=== PATIENT | male | born 1935 | race Caucasian/White ===

== ENCOUNTER 2017-09-26 11:54 | Inpatient (IN) | payer MEDICARE, BC ==
[2017-09-26] MEDS ORDERED: SODIUM CHLORIDE 0.9% 1,000 ML IV STA (12:28)
--- NOTE | 2017-09-26 12:32 | ED ---
SOB HPI - General Chief Complaint: Shortness of Breath Stated Complaint: SOB Time Seen by Provider: 09/26/17 12:18 Source: patient, RN notes reviewed Mode of arrival: wheelchair Limitations: no limitations - History of Present Illness Initial Comments: This is a 2-year-old male with a history of leukemia anemia who presents with complaints of shortness of breath for the past couple days which is getting worse he did have a hemoglobin level of 8.0 on the ninth he did have recent blood transfusion. The cough with some phlegm some chills no overt fevers or sweats. Chest pain or abdominal pain. He was placed on antibiotics a couple days ago but still does not feel any better. He states his cold symptoms and she started a couple days ago. MD Complaint: shortness of breath, cough - Related Data Home Medications Medication Instructions Recorded Confirmed Finasteride [Proscar] 5 mg PO DAILY 07/14/17 09/26/17 Cephalexin [Keflex] 500 mg PO Q8HR 09/26/17 09/26/17 Bhavna-C 1 packet PO DAILY 09/26/17 09/26/17 amLODIPine [Norvasc] 5 mg PO DAILY 09/26/17 09/26/17 Allergies Allergy/AdvReac Type Severity Reaction Status Date / Time No Known Allergies Allergy Verified 09/26/17 12:39 Review of Systems ROS Statement: Those systems with pertinent positive or pertinent negative responses have been documented in the HPI. ROS Other: All systems not noted in ROS Statement are negative. Past Medical History Past Medical History: Cancer Additional Past Medical History / Comment(s): AML History of Any Multi-Drug Resistant Organisms: None Reported Past Surgical History: No Surgical Hx Reported Past Psychological History: No Psychological Hx Reported Smoking Status: Never smoker Past Alcohol Use History: Occasional Past Drug Use History: None Reported General Exam - General Exam Comments Initial Comments: This a well-developed well-nourished awake alert oriented 1 male Limitations: no limitations General appearance: alert, in no apparent distress Head exam: Present: atraumatic, normocephalic, normal inspection Eye exam: Present: normal appearance, PERRL, EOMI. Absent: scleral icterus, conjunctival injection, periorbital swelling ENT exam: Present: mucous membranes dry Neck exam: Present: normal inspection. Absent: tenderness, meningismus, lymphadenopathy Respiratory exam: Present: rhonchi, other (Right lower lobe rhonchi somewhat diminished breath sounds). Absent: respiratory distress, wheezes, rales, stridor Cardiovascular Exam: Present: normal rhythm, tachycardia, normal heart sounds. Absent: systolic murmur, diastolic murmur, rubs, gallop, clicks GI/Abdominal exam: Present: soft, normal bowel sounds. Absent: distended, tenderness, guarding, rebound, rigid Extremities exam: Present: normal inspection, full ROM, normal capillary refill. Absent: tenderness, pedal edema, joint swelling, calf tenderness Back exam: Present: normal inspection Neurological exam: Present: alert, oriented X3, CN II-XII intact Psychiatric exam: Present: normal affect, normal mood Skin exam: Present: warm, dry, intact, normal color. Absent: rash Course Vital Signs 09/26/17 09/26/17 09/26/17 11:57 12:26 13:44 Temperature 98.1 F 100.8 F H Pulse Rate 124 H 108 H Respiratory 20 16 Rate Blood Pressure 137/60 127/70 O2 Sat by Pulse 83 L 93 L Oximetry - Reevaluation(s) Reevaluation #1: 09/26/17 15:18 Reevaluation patient reveals he has no changes acutely since arrival here. Medical Decision Making - Medical Decision Making I did a long discussion with the patient family regarding the findings. Does have leukemia he did have a fever is unclear whether this is secondary to infectious process in the lung. Patient does have some evidence of some possible mild heart failure. He also is anemic and will require transfusion he will be admitted consultation will be made to Dr. Carmona. There is some elevation of troponin cardiology will also be involved. - Lab Data Result diagrams: 09/26/17 12:33 09/26/17 12:33 Lab Results 09/26/17 09/26/17 09/26/17 Range/Units 12:33 12:33 12:33 WBC 69.7 H* (3.8-10.6) k/uL RBC 2.03 L (4.30-5.90) m/uL Hgb 6.2 L* (13.0-17.5) gm/dL Hct 18.5 L* (39.0-53.0) % MCV 91.4 (80.0-100.0) fL MCH 30.5 (25.0-35.0) pg MCHC 33.4 (31.0-37.0) g/dL RDW 22.9 H (11.5-15.5) % Plt Count 31 L* (150-450) k/uL Neutrophils % (Manual) 15 % Band Neutrophils % 4 % Lymphocytes % (Manual) 8 % Monocytes % (Manual) 3 % Metamyelocytes % 1 % Myelocytes % 2 % Blast Cells % 69 % Neutrophils # (Manual) 13.20 H (1.3-7.7) k/uL Lymphocytes # (Manual) 5.58 H (1.0-4.8) k/uL Monocytes # (Manual) 2.09 H (0-1.0) k/uL Metamyelocytes # (Man) 0.70 H (0) k/uL Myelocytes # (Manual) 1.39 H (0) k/uL Blast Cells # (Man) 48.09 H (0) k/uL Nucleated RBCs 0 (0-0) /100 WBC Manual Slide Review Performed Poikilocytosis (manual Present Anisocytosis Moderate Macrocytosis Slight PT (9.0-12.0) sec INR (<1.2) APTT (22.0-30.0) sec Sodium (137-145) mmol/L Potassium (3.5-5.1) mmol/L Chloride (98-107) mmol/L Carbon Dioxide (22-30) mmol/L Anion Gap mmol/L BUN (9-20) mg/dL Creatinine (0.66-1.25) mg/dL Est GFR (MDRD) Af Amer (>60 ml/min/1.73 sqM) Est GFR (MDRD) Non-Af (>60 ml/min/1.73 sqM) Glucose (74-99) mg/dL Plasma Lactic Acid Cristi (0.7-2.0) mmol/L Calcium (8.4-10.2) mg/dL Magnesium (1.6-2.3) mg/dL Total Bilirubin (0.2-1.3) mg/dL AST (17-59) U/L ALT (21-72) U/L Alkaline Phosphatase (38-126) U/L Total Creatine Kinase 36 L (55-170) U/L CK-MB (CK-2) 0.8 (0.0-2.4) ng/mL CK-MB (CK-2) Rel Index 2.2 Troponin I 0.112 H* (0.000-0.034) ng/mL NT-Pro-B Natriuret Pep pg/mL Total Protein (6.3-8.2) g/dL Albumin (3.5-5.0) g/dL Influenza Type A RNA (Not Detectd) Influenza Type B (PCR) (Not Detectd) Blood Type O Positive Blood Type Recheck No Antibody Screen NEGATIVE Spec Expiration Date 09/29/2017233209/26/17 09/26/17 09/26/17 Range/Units 12:33 12:33 12:33 WBC (3.8-10.6) k/uL RBC (4.30-5.90) m/uL Hgb (13.0-17.5) gm/dL Hct (39.0-53.0) % MCV (80.0-100.0) fL MCH (25.0-35.0) pg MCHC (31.0-37.0) g/dL RDW (11.5-15.5) % Plt Count (150-450) k/uL Neutrophils % (Manual) % Band Neutrophils % % Lymphocytes % (Manual) % Monocytes % (Manual) % Metamyelocytes % % Myelocytes % % Blast Cells % % Neutrophils # (Manual) (1.3-7.7) k/uL Lymphocytes # (Manual) (1.0-4.8) k/uL Monocytes # (Manual) (0-1.0) k/uL Metamyelocytes # (Man) (0) k/uL Myelocytes # (Manual) (0) k/uL Blast Cells # (Man) (0) k/uL Nucleated RBCs (0-0) /100 WBC Manual Slide Review Poikilocytosis (manual Anisocytosis Macrocytosis PT 12.2 H (9.0-12.0) sec INR 1.3 H (<1.2) APTT 22.4 (22.0-30.0) sec Sodium 134 L (137-145) mmol/L Potassium 4.4 (3.5-5.1) mmol/L Chloride 100 (98-107) mmol/L Carbon Dioxide 26 (22-30) mmol/L Anion Gap 8 mmol/L BUN 21 H (9-20) mg/dL Creatinine 0.99 (0.66-1.25) mg/dL Est GFR (MDRD) Af Amer >60 (>60 ml/min/1.73 sqM) Est GFR (MDRD) Non-Af >60 (>60 ml/min/1.73 sqM) Glucose 294 H (74-99) mg/dL Plasma Lactic Acid Cristi (0.7-2.0) mmol/L Calcium 8.8 (8.4-10.2) mg/dL Magnesium 1.8 (1.6-2.3) mg/dL Total Bilirubin 0.9 (0.2-1.3) mg/dL AST 46 (17-59) U/L ALT 115 H (21-72) U/L Alkaline Phosphatase 62 (38-126) U/L Total Creatine Kinase (55-170) U/L CK-MB (CK-2) (0.0-2.4) ng/mL CK-MB (CK-2) Rel Index Troponin I (0.000-0.034) ng/mL NT-Pro-B Natriuret Pep 1970 pg/mL Total Protein 6.2 L (6.3-8.2) g/dL Albumin 3.2 L (3.5-5.0) g/dL Influenza Type A RNA (Not Detectd) Influenza Type B (PCR) (Not Detectd) Blood Type Blood Type Recheck Antibody Screen Spec Expiration Date 09/26/17 09/26/17 Range/Units 12:34 13:47 WBC (3.8-10.6) k/uL RBC (4.30-5.90) m/uL Hgb (13.0-17.5) gm/dL Hct (39.0-53.0) % MCV (80.0-100.0) fL MCH (25.0-35.0) pg MCHC (31.0-37.0) g/dL RDW (11.5-15.5) % Plt Count (150-450) k/uL Neutrophils % (Manual) % Band Neutrophils % % Lymphocytes % (Manual) % Monocytes % (Manual) % Metamyelocytes % % Myelocytes % % Blast Cells % % Neutrophils # (Manual) (1.3-7.7) k/uL Lymphocytes # (Manual) (1.0-4.8) k/uL Monocytes # (Manual) (0-1.0) k/uL Metamyelocytes # (Man) (0) k/uL Myelocytes # (Manual) (0) k/uL Blast Cells # (Man) (0) k/uL Nucleated RBCs (0-0) /100 WBC Manual Slide Review Poikilocytosis (manual Anisocytosis Macrocytosis PT (9.0-12.0) sec INR (<1.2) APTT (22.0-30.0) sec Sodium (137-145) mmol/L Potassium (3.5-5.1) mmol/L Chloride (98-107) mmol/L Carbon Dioxide (22-30) mmol/L Anion Gap mmol/L BUN (9-20) mg/dL Creatinine (0.66-1.25) mg/dL Est GFR (MDRD) Af Amer (>60 ml/min/1.73 sqM) Est GFR (MDRD) Non-Af (>60 ml/min/1.73 sqM) Glucose (74-99) mg/dL Plasma Lactic Acid Cristi 1.9 (0.7-2.0) mmol/L Calcium (8.4-10.2) mg/dL Magnesium (1.6-2.3) mg/dL Total Bilirubin (0.2-1.3) mg/dL AST (17-59) U/L ALT (21-72) U/L Alkaline Phosphatase (38-126) U/L Total Creatine Kinase (55-170) U/L CK-MB (CK-2) (0.0-2.4) ng/mL CK-MB (CK-2) Rel Index Troponin I (0.000-0.034) ng/mL NT-Pro-B Natriuret Pep pg/mL Total Protein (6.3-8.2) g/dL Albumin (3.5-5.0) g/dL Influenza Type A RNA Not Detected (Not Detectd) Influenza Type B (PCR) Not Detected (Not Detectd) Blood Type Blood Type Recheck Antibody Screen Spec Expiration Date - Radiology Data Radiology results: report reviewed (I did review the imaging and reports COPD cardiac male evidence of some vascular congestion and increased interstitial changes.), image reviewed Disposition Clinical Impression: Symptomatic anemia, Congestive heart failure, Febrile illness, acute, Leukemia Disposition: ADMITTED IP TO THIS HOSP Condition: Stable Referrals: None,Stated [REFERRING] - 1-2 days
[2017-09-26 12:50] LABS: Anisocytosis Moderate; MCH 30.5 pg (25.0-35.0); MCHC 33.4 g/dL (31.0-37.0); MCV 91.4 fL (80.0-100.0); Macrocytosis Slight; Mean Platelet Volume 8.6; RBC 2.03 m/uL (4.30-5.90); RDW 22.9 % (11.5-15.5)
[2017-09-26 12:53] LABS: ALT 115 U/L (21-72); AST 46 U/L (17-59); Albumin 3.2 g/dL (3.5-5.0); Alkaline Phosphatase 62 U/L (38-126); Anion Gap 8 mmol/L; Blood Urea Nitrogen 21 mg/dL (9-20); Calcium 8.8 mg/dL (8.4-10.2); Carbon Dioxide 26 mmol/L (22-30); Chloride 100 mmol/L (98-107); Glucose 294 mg/dL (74-99); Magnesium 1.8 mg/dL (1.6-2.3); Potassium 4.4 mmol/L (3.5-5.1); Sodium 134 mmol/L (137-145); Total Bilirubin 0.9 mg/dL (0.2-1.3); Total Protein 6.2 g/dL (6.3-8.2)
[2017-09-26 12:55] LABS: INR 1.3 (<1.2); Partial Thromboplastin Time 22.4 sec (22.0-30.0); Prothrombin Time 12.2 sec (9.0-12.0)
--- NOTE | 2017-09-26 13:09 | XR ---
EXAMINATION TYPE: XR chest 2V DATE OF EXAM: 09/26/2017 HISTORY: difficulty breathing. REFERENCE: NONE. FINDINGS: The lungs are overinflated. There is diffuse interstitial change. This may BE acute or auditor/quality jodi. This is chronic and likely represents pulmonary fibrosis. There is a acute, this may represent a typical pneumonia. Pulmonary edema superimposed upon abnormal lung architecture could also have this appearance. The heart is enlarged. I suspect small effusions. IMPRESSION: 1. COPD. 2. CARDIOMEGALY. 3. VASCULAR CONGESTION. 4. DIFFUSE INTERSTITIAL CHANGE DESCRIBED, MAY REPRESENT FIBROSIS OR ATYPICAL PULMONARY EDEMA.
[2017-09-26 13:16] LABS: HCT 18.5 % (39.0-53.0); HGB 6.2 gm/dL (13.0-17.5); Platelet Count 31 k/uL (150-450); WBC 69.7 k/uL (3.8-10.6)
[2017-09-26 13:19] LABS: Creatine Kinase MB 0.8 ng/mL (0.0-2.4)
[2017-09-26 13:20] LABS: Troponin I 0.112 ng/mL (0.000-0.034)
[2017-09-26 13:30] LABS: Band Neutrophils % 4 %; Blast Cells # (M) 48.09 k/uL (0); Lymphocytes # (M) 5.58 k/uL (1.0-4.8); Metamyelocytes % 1 %; Monocytes # (M) 2.09 k/uL (0-1.0); Myelocytes # (M) 1.39 k/uL (0); Myelocytes % 2 %; Neutrophils % (M) 15 %; Nucleated Red Blood Cells 0 /100 WBC (0-0); Poikilocytosis (M) Present; Total Cells Counted 200
[2017-09-26] MEDS ORDERED: NALOXONE 0.4 MG/ML 1 ML VIAL IV PRN (15:22)
[2017-09-26] MEDS ORDERED: ONDANSETRON 4 MG/2 ML VIAL IVP PRN (15:22)
[2017-09-26] MEDS ORDERED: ACETAMINOPHEN TAB 325 MG TAB PO PRN (15:22)
[2017-09-26] MEDS ORDERED: CEFEPIME 1 GM in SODIUM CHLORIDE 0.9% 50 ML IVPB STA (15:25)
[2017-09-26] MEDS ORDERED: SODIUM CHLORIDE 0.9% 1,000 ML IV SCH (15:30)
[2017-09-26] MEDS ORDERED: CEFEPIME 2 GM in SODIUM CHLORIDE 0.9% 50 ML IVPB STA (15:36)
[2017-09-26] MEDS ORDERED: FUROSEMIDE 10 MG/ML 4 ML VIAL IV STA (15:37)
[2017-09-26 16:18] VITALS: BMI 27.3
[2017-09-27] MEDS: CEFEPIME 2 GM in SODIUM CHLORIDE 0.9% 50 ML IVPB SCH ×4 (00:34→23:13)
[2017-09-27] MEDS ORDERED: FUROSEMIDE 10 MG/ML 4 ML VIAL IV STA ×2 (00:50→16:27)
[2017-09-27 06:46] LABS: Anisocytosis Moderate; HCT 24.6 % (39.0-53.0); HGB 8.7 gm/dL (13.0-17.5); MCH 33.2 pg (25.0-35.0); MCHC 35.2 g/dL (31.0-37.0); MCV 94.1 fL (80.0-100.0); Macrocytosis Slight; Mean Platelet Volume 8.8; RBC 2.61 m/uL (4.30-5.90); RDW 21.8 % (11.5-15.5)
[2017-09-27 07:12] LABS: Platelet Count 30 k/uL (150-450); WBC 103.1 k/uL (3.8-10.6)
[2017-09-27] MEDS: FINASTERIDE 5 MG TAB PO SCH (07:53)
[2017-09-27] MEDS: PANTOPRAZOLE 40 MG/10 ML VIAL IV SCH (07:53)
[2017-09-27] MEDS: IPRATROPIUM-ALBUTEROL 3 ML NEB INHALATION SCH ×4 (08:11→19:07)
[2017-09-27 08:55] LABS: Band Neutrophils % 2 %; Lymphocytes # (M) 3.09 k/uL (1.0-4.8); Monocytes # (M) 2.06 k/uL (0-1.0); Myelocytes # (M) 1.03 k/uL (0); Myelocytes % 1 %; Neutrophils % (M) 8 %; Nucleated Red Blood Cells 0 /100 WBC (0-0); Total Cells Counted 100
[2017-09-27 08:56] LABS: Poikilocytosis (M) Present
[2017-09-27] MEDS ORDERED: ESTER C PO SCH (09:00)
[2017-09-27] MEDS ORDERED: amLODIPine 5 MG TAB PO SCH (09:00)
[2017-09-27] MEDS: HYDROXYUREA 500 MG CAP PO SCH ×2 (09:10→20:45)
[2017-09-27] MEDS: ALLOPURINOL 300 MG TAB PO SCH (09:10)
[2017-09-27] MEDS ORDERED: VANCOMYCIN IV PER PHARMACY 1 EACH MISC MISCELLANE PRN (09:25)
[2017-09-27] MEDS ORDERED: VANCOMYCIN 1,750 MG in SODIUM CHLORIDE 0.9% 250 ML IVPB ONE (10:00)
[2017-09-27] MEDS ORDERED: FUROSEMIDE 10 MG/ML 4 ML VIAL IV SCH (10:00)
--- NOTE | 2017-09-27 10:15 | CT ---
EXAMINATION TYPE: CT chest wo con DATE OF EXAM: 09/27/2017 COMPARISON: NONE HISTORY: ILD, pneumonia CT DLP: 468.50 mGycm. Automated Exposure Control for Dose Reduction was Utilized. TECHNIQUE: CT scan of the thorax is performed without IV contrast. FINDINGS: There is diffuse, bilateral patchy groundglass opacities occupying most of the lung parench yma. No definite parenchymal nodules are seen. There is no significant axillary adenopathy. There is some mediastinal adenopathy. The largest lymph node measures 1.2 cm. There are bilateral pleural effusions, greater on the right than the left. There is a 6 mm pericardia l effusion. The heart is enlarged. There is coronary artery calcification. Visualized portions of the upper abdomen are unremarkable. There is hypertrophic spondylosis within the spine.. IMPRESSION: 1. DIFFUSE PATCHY GROUNDGLASS OPACITY THROUGHOUT BOTH LUNGS. THIS MAY REPRESENT ALVEOLITIS OR PNEUMON ITIS. OTHER ATYPICAL PNEUMONIA SUCH USUAL INTERSTITIAL PNEUMONIA OR BRONCHIOLITIS OBLITERANS ORGAN IZING PNEUMONIA WOULD ALSO BE A POSSIBILITY. 2. NONSPECIFIC MEDIASTINAL ADENOPATHY. 3. BILATERAL EFFUSIONS, GREATER ON THE RIGHT THAN THE LEFT. 4. DEGENERATIVE CHANGE WITHIN THE SPINE.
[2017-09-27] MEDS: SODIUM CHLORIDE 0.9% 1,000 ML IV SCH ×2 (10:23→22:32)
[2017-09-27 10:44] LABS: Glucose,Whole Blood 207 mg/dL (75-99)
[2017-09-27 11:05] LABS: Anion Gap 6 mmol/L; Blood Urea Nitrogen 22 mg/dL (9-20); Calcium 8.8 mg/dL (8.4-10.2); Carbon Dioxide 32 mmol/L (22-30); Chloride 102 mmol/L (98-107); Glucose 133 mg/dL (74-99); Magnesium 1.9 mg/dL (1.6-2.3); Phosphorus 3.4 mg/dL (2.5-4.5); Potassium 4.2 mmol/L (3.5-5.1); Sodium 140 mmol/L (137-145)
--- NOTE | 2017-09-27 11:52 | P.CNPUL ---
History of Present Illness Consult date: 09/27/17 Requesting physician: Wilbert Mckinley Reason for consult: pneumonia Chief complaint: shortness of breath and coughing up blood History of present illness: this is an 82-year-old white male with history of chronic lymphocytic leukemia, hypertension, normally sees Dr. Carmona for his leukemia. Over the last few days , the patient had symptoms of upper respiratory tract infection,and he was seen by Dr. Girard who is covering for Dr. Rodríguez, and he was given Keflex for what seemed to be symptoms of URI. His symptoms at the time included a runny nose, cough with blood-tinged sputum, weakness, fatigue, and shortness of breath. Over the last few days, the patient has been getting gradually worse. Patient was advised to come to the ER. And last night he was evaluated in the ER.noted to have a significant jump in his WBC count almost double up to 10 3000s, with significant blastic transformation of 84% on the differential. Platelets were noted to be low at 30,000, and hemoglobin was 6.2.borderline troponin elevation was noted, and borderline BNP level was noted to be elevated. His influenza screen for influenza A and influenza B were negative.chest x-ray showed diffuse interstitial infiltrates, patient was admitted, and this consult was initiated. Shortly after a evaluated the patient , I felt that the patient has shortness of breath which is multifactorial secondary to worsening interstitial infiltrates, and the differential diagnoses includes infection it also includes and most likely the possibility of ARDS secondary to leukemic infiltrates involving both lungs. This is mostly based on the fact that his white count has significantly increased and a matter of few days, with worsening blast transformation noted on the differential. In the meantime I have recommended giving the patient's broad-spectrum antibiotics in the form of vancomycin and cefepime, and also recommended Solu-Medrol, patient was already given diuretics by the ER physician but I strongly doubt congestive heart failure. CT of the chest showeddiffuse patchy groundglass opacities in both lungs, representing a picture of alveolitis or pneumonitis or interstitial pneumonia or bronchiolitis obliterans with organizing pneumonia. There was also evidence of nonspecific mediastinal adenopathy and bilateral small effusions. As soon as I evaluated the patient, I have made recommendations to transfer the patient to the ICU, discussed CODE STATUS with the family and with the patient, clearly, the patient wishes to be DO NOT RESUSCITATE. I have also discussed the patient's condition with the oncologist on the case Dr. Machado. Review of Systems 12 point review of systems were obtained, patient denies any headaches, no blurred vision, no dizziness, complaining of runny nose, shortness of breath, cough with coughing up some blood, no chest pain, no palpitations, no nausea, no vomiting, no abdominal pain, no melena, no hematemesis, no dysuria and no frequency no urgency no hematuria. Patient denies significant aches and pains, he just feels generally weak. Otherwise remaining systems are negative. Past Medical History Past Medical History: Cancer Additional Past Medical History / Comment(s): AML History of Any Multi-Drug Resistant Organisms: None Reported Past Surgical History: Hernia Repair Additional Past Surgical History / Comment(s): hernia repair 1963 Past Psychological History: No Psychological Hx Reported Smoking Status: Never smoker Past Alcohol Use History: Occasional Past Drug Use History: None Reported Medications and Allergies Home Medications Medication Instructions Recorded Confirmed Type Finasteride [Proscar] 5 mg PO DAILY 07/14/17 09/26/17 History Cephalexin [Keflex] 500 mg PO Q8HR 09/26/17 09/26/17 History Bhavna-C 1 packet PO DAILY 09/26/17 09/26/17 History amLODIPine [Norvasc] 5 mg PO DAILY 09/26/17 09/26/17 History Allergies Allergy/AdvReac Type Severity Reaction Status Date / Time No Known Allergies Allergy Verified 09/26/17 12:39 Physical Exam Vitals: Vital Signs Temp Pulse Pulse Resp BP BP Pulse Ox 09/27/17 11:35 114 H 09/27/17 11:14 103 H 09/27/17 11:00 98.3 F 113 H 36 H 122/73 92 L 09/27/17 08:18 88 09/27/17 08:11 88 09/27/17 08:08 92 L 09/27/17 07:53 97 F L 96 22 131/60 90 L 09/27/17 04:30 94 L 09/27/17 04:00 98.6 F 99 22 119/65 88 L 09/27/17 02:35 93 L 09/27/17 01:20 92 L 09/27/17 01:00 83 L 09/27/17 00:35 97.6 F 108 H 18 122/48 90 L 09/27/17 00:15 94 L 09/27/17 00:00 98 18 88 L 09/26/17 22:00 97 F L 98 18 114/70 91 L 09/26/17 21:30 97.9 F 108 H 18 129/71 93 L 09/26/17 21:20 98 F 112 H 18 126/73 92 L 09/26/17 20:00 98 F 112 H 18 135/69 92 L 09/26/17 19:59 98 F 112 H 18 135/69 92 L 09/26/17 18:04 97.3 F L 96 18 133/66 93 L 09/26/17 17:34 97.2 F L 91 18 120/59 91 L 09/26/17 17:24 98.8 F 116 H 18 139/75 95 09/26/17 16:06 96.6 F L 109 H 18 127/64 90 L 09/26/17 15:39 96 16 164/79 93 L 09/26/17 13:44 108 H 16 127/70 93 L 09/26/17 12:26 100.8 F H 09/26/17 11:57 98.1 F 124 H 20 137/60 83 L Intake and Output 09/26/17 09/27/17 09/27/17 22:59 06:59 14:59 Intake Total 550 310 Output Total 175 525 Balance 375 -215 Intake: Oral 240 0 Blood Product 310 310 Rc As-1 Unit 0 310 [id number] Rc As-1 Unit 310 [id number] Output: Urine 175 525 Other: Voiding Method Toilet Toilet Toilet Urinal Urinal Urinal Weight 81.647 kg 85.9 kg Physical Exam: Revealed an 82-year-old white male, very pleasant, on high flow nasal cannula, in mild respiratory distress noted. Slightly anxious. HEENT:[Neck is supple.] [No neck masses.] [No thyromegaly.] [No JVD.]PERRLA, EOMI, dry mucous membranes were noted. Chest: [fine crackles noted at the bases bilaterally, no rhonchi, no wheezes. No chest wall tenderness..] Cardiac Exam: [Normal S1 and S2, no S3 gallop, no murmur.] Abdomen: [Soft, nontender, no megaly, no rebound, no guarding, normal bowel sounds.] Extremities: [No clubbing, no edema, no cyanosis.] Neurological Exam: [No focal neurologic deficit.] lymphatics: No lymphadenopathy. Psychiatric: Normal mood affect and mental status examination. Results - Laboratory Findings CBC and BMP: 09/27/17 06:07 09/27/17 06:07 PT/INR, D-dimer PT 12.2 sec (9.0-12.0) H 09/26/17 12:33 INR 1.3 (<1.2) H 09/26/17 12:33 D-Dimer 3.21 mg/L FEU (<0.60) H 09/27/17 06:07 Abnormal lab findings: Abnormal Labs 09/26/17 09/26/17 09/26/17 12:33 12:33 12:33 WBC 69.7 H* RBC 2.03 L Hgb 6.2 L* Hct 18.5 L* RDW 22.9 H Plt Count 31 L* Neutrophils # (Manual) 13.20 H Lymphocytes # (Manual) 5.58 H Monocytes # (Manual) 2.09 H Metamyelocytes # (Man) 0.70 H Myelocytes # (Manual) 1.39 H Blast Cells # (Man) 48.09 H PT INR D-Dimer Sodium Carbon Dioxide BUN Glucose POC Glucose (mg/dL) ALT Total Creatine Kinase 36 L Troponin I 0.112 H* Total Protein Albumin Crossmatch See Detail 09/26/17 09/26/17 09/27/17 12:33 12:33 01:13 WBC RBC Hgb Hct RDW Plt Count Neutrophils # (Manual) Lymphocytes # (Manual) Monocytes # (Manual) Metamyelocytes # (Man) Myelocytes # (Manual) Blast Cells # (Man) PT 12.2 H INR 1.3 H D-Dimer Sodium 134 L Carbon Dioxide BUN 21 H Glucose 294 H POC Glucose (mg/dL) ALT 115 H Total Creatine Kinase Troponin I 0.179 H* Total Protein 6.2 L Albumin 3.2 L Crossmatch 09/27/17 09/27/17 09/27/17 06:07 06:07 06:07 WBC 103.1 H* RBC 2.61 L Hgb 8.7 L D Hct 24.6 L RDW 21.8 H Plt Count 30 L* Neutrophils # (Manual) 10.30 H Lymphocytes # (Manual) Monocytes # (Manual) 2.06 H Metamyelocytes # (Man) Myelocytes # (Manual) 1.03 H Blast Cells # (Man) 86.60 H PT INR D-Dimer 3.21 H Sodium Carbon Dioxide BUN Glucose POC Glucose (mg/dL) ALT Total Creatine Kinase Troponin I 0.143 H* Total Protein Albumin Crossmatch 09/27/17 09/27/17 06:07 10:40 WBC RBC Hgb Hct RDW Plt Count Neutrophils # (Manual) Lymphocytes # (Manual) Monocytes # (Manual) Metamyelocytes # (Man) Myelocytes # (Manual) Blast Cells # (Man) PT INR D-Dimer Sodium Carbon Dioxide 32 H BUN 22 H Glucose 133 H POC Glucose (mg/dL) 207 H ALT Total Creatine Kinase Troponin I Total Protein Albumin Crossmatch - Diagnostic Findings Chest x-ray: image reviewed CT scan - chest: image reviewed (diffuse interstitial infiltrates noted bilaterally. No old x-rays or scans of the chest for comparison available.) Assessment and Plan Assessment: impression: 1 acute hypoxic respiratory failure secondary to diffuse interstitial infiltrates, the differential diagnoses includes leukemic infiltrates, ARDS from leukemic pulmonary infiltrates, bilateral pneumonia in an immunocompromised patient, could be viral or bacterial, however I believe the presentation is mostly a presentation of ARDS with leukemic infiltrates secondary to worsening acute on chronic lymphocytic leukemia. 2 acute thrombocytopenia and anemia secondary to underlying acute on chronic lymphocytic leukemia. 3 acute hemoptysis secondary to bilateral interstitial infiltrates, again the most likely explanation is related to leukemic infiltrates bilaterally. 4history of hypertension,and history of chronic lymphocytic leukemia. Recommendation: Patient was transferred to the ICU, placed on antibiotics in the form of cefepime and vancomycin, placed on high flow O2, will receive Solu- Medrol, will receive GI prophylaxis, no need for diuretics at this point, patient was already given diuretics without major improvement. Discussed his condition with the oncologist on the case, discussed his condition with the family and with the patient at bedside, all aware of the poor prognostic picture , and CODE STATUS is DO NOT RESUSCITATE. Critical care time is 1 hour. Time with Patient: Greater than 30
[2017-09-27] MEDS: METOPROLOL TARTRATE 25 MG TAB PO SCH ×2 (12:42→20:45)
--- NOTE | 2017-09-27 12:58 | CONS ---
CONSULTATION Mr. Baez is an 82-year-old male who was diagnosed with AML in June off last year, who presented with symptoms of progressive dyspnea and fatigue and was noted to be severely anemic. He has transfusion in the past and has been followed by Dr. Carmona and scheduled to undergo chemotherapy. He has no prior cardiac history. History activity level is usually good. He has no exertional chest pain. He had no symptoms until June when he started to have his symptoms. He has been feeling more fatigued and short of breath and was diagnosed with pneumonia on presentation and was febrile. His troponin was minimally elevated. The patient has no history of PND, orthopnea. No peripheral edema. No history of arrhythmia and no dizziness. No palpitation. No syncope in the past. His coronary risk factors positive for hypertension, is nondiabetic, nonsmoker, no document hyperlipidemia. MEDICATIONS: Include amlodipine 5 mg daily. REVIEW OF SYSTEMS: RESPIRATORY SYSTEM: He has no history of documented asthma, emphysema. He has recent cough. GI SYSTEM: No recent GI bleeding. He had mild nausea. SYSTEM: No dysuria, hematuria. NERVOUS SYSTEM: No stroke or seizure. PHYSICAL EXAMINATION: He is an 82-year-old male, alert, oriented, mildly dyspneic. Blood pressure 122/70 with a heart rate in the low 100s. HEAD: Normocephalic. EYES: Sclerae anicteric. NECK: No bruit. LUNGS: With few crackles bilaterally with few rales. No wheezes. HEART: Regular rate and rhythm, S1, S2. No S3 with systolic murmur at the base. No diastolic murmur. No rub. ABDOMEN: Soft, nontender. Positive bowel sounds. No organomegaly. EXTREMITIES: No edema. Intact pulses. LAB DATA: BUN and creatinine 22 and 1.04, potassium 4.2. Hemoglobin of 6.2 yesterday, 8.7 today after transfusion. His white blood cell went from 69,000 to 103,000. His platelet count is 30. His troponin 0.112, 0.179, 0.143. IMPRESSION: 1. AML with significant increase in the white blood cell over the next 24 hours. 2. Probable pneumonia. 3. Minimal elevation of troponin, reflecting a type 2 event. 4. Anemia, severe, related to his malignancy. 5. Prior history of hypertension. RECOMMENDATION: From the cardiac standpoint, I will stop his amlodipine and start him on low-dose beta amy. Obtain echocardiogram with Doppler. I do not believe that his troponin elevation reflects a primary event and his EKG shows no acute changes. Unfortunately the prognosis is guarded. LUDIVINA / IJN: [id number] /
--- NOTE | 2017-09-27 13:38 | P.HPIM ---
History of Present Illness H&P Date: 09/27/17 Moe Baez is a 82-year-old male with a history of leukemia and anemia who presents with complaints of shortness of breath for the past couple days which is getting worse. He received blood transfusion as outpatient also received a course of oral antibiotic his condition continued to worsen and he decided to come to emergency room where he was admitted to medical floor. Patient was seen by hematology and 2 units of red blood cells were ordered, he was having worsening shortness of breath he received IV Lasix and was transferred to intensive care unit. Pulmonary consultation and cardiology consultation were requested. He shouldn't has a known history of leukemia and is followed by oncology as outpatient. Past Medical History Past Medical History: Cancer Additional Past Medical History / Comment(s): AML History of Any Multi-Drug Resistant Organisms: None Reported Past Surgical History: Hernia Repair Additional Past Surgical History / Comment(s): hernia repair 1963 Past Psychological History: No Psychological Hx Reported Smoking Status: Never smoker Past Alcohol Use History: Occasional Past Drug Use History: None Reported Medications and Allergies Home Medications Medication Instructions Recorded Confirmed Type Finasteride [Proscar] 5 mg PO DAILY 07/14/17 09/26/17 History Cephalexin [Keflex] 500 mg PO Q8HR 09/26/17 09/26/17 History Bhavna-C 1 packet PO DAILY 09/26/17 09/26/17 History amLODIPine [Norvasc] 5 mg PO DAILY 09/26/17 09/26/17 History Allergies Allergy/AdvReac Type Severity Reaction Status Date / Time No Known Allergies Allergy Verified 09/26/17 12:39 Physical Exam Vitals: Vital Signs Temp Pulse Pulse Resp BP BP Pulse Ox 09/27/17 12:00 103 H 38 H 131/75 91 L 09/27/17 11:35 114 H 09/27/17 11:14 103 H 09/27/17 11:00 98.3 F 113 H 36 H 122/73 92 L 09/27/17 08:18 88 09/27/17 08:11 88 09/27/17 08:08 92 L 09/27/17 07:53 97 F L 96 22 131/60 90 L 09/27/17 04:30 94 L 09/27/17 04:00 98.6 F 99 22 119/65 88 L 09/27/17 02:35 93 L 09/27/17 01:20 92 L 09/27/17 01:00 83 L 09/27/17 00:35 97.6 F 108 H 18 122/48 90 L 09/27/17 00:15 94 L 09/27/17 00:00 98 18 88 L 09/26/17 22:00 97 F L 98 18 114/70 91 L 09/26/17 21:30 97.9 F 108 H 18 129/71 93 L 09/26/17 21:20 98 F 112 H 18 126/73 92 L 09/26/17 20:00 98 F 112 H 18 135/69 92 L 09/26/17 19:59 98 F 112 H 18 135/69 92 L 09/26/17 18:04 97.3 F L 96 18 133/66 93 L 09/26/17 17:34 97.2 F L 91 18 120/59 91 L 09/26/17 17:24 98.8 F 116 H 18 139/75 95 09/26/17 16:06 96.6 F L 109 H 18 127/64 90 L 09/26/17 15:39 96 16 164/79 93 L 09/26/17 13:44 108 H 16 127/70 93 L Intake and Output 09/26/17 09/27/17 09/27/17 22:59 06:59 14:59 Intake Total 550 310 75 Output Total 175 525 Balance 375 -215 75 Intake: IV 75 Sodium Chloride 0.9% 1, 75 000 ml @ 75 mls/hr IV . [id number] [facility] Rx#:[id number] Oral 240 0 Blood Product 310 310 Rc As-1 Unit 0 310 [id number] Rc As-1 Unit 310 [id number] Output: Urine 175 525 Other: Voiding Method Toilet Toilet Toilet Urinal Urinal Urinal Weight 81.647 kg 85.9 kg 85.8 kg Patient Weight 09/28/17 06:59 Weight 85.8 kg General patient is alert and oriented 3 in no apparent distress HEENT head normocephalic and atraumatic Is supple no JVD no goiter no lymphadenopathy Chest exam reveals diffuse crackles in both lung serrano no wheezing Cardiac exam reveals regular heart sounds no gallops no murmurs Abdomen is soft nontender no organomegaly was normal bowel sounds Extremity exam reveals no edema no cyanosis or clubbing Results CBC & Chem 7: 09/27/17 06:07 09/27/17 06:07 Labs: Abnormal Lab Results - Last 24 Hours (Table) 09/26/17 09/26/17 09/27/17 Range/Units 12:33 12:33 01:13 WBC (3.8-10.6) k/uL RBC (4.30-5.90) m/uL Hgb (13.0-17.5) gm/dL Hct (39.0-53.0) % RDW (11.5-15.5) % Plt Count (150-450) k/uL Neutrophils # (Manual) 13.20 H (1.3-7.7) k/uL Lymphocytes # (Manual) 5.58 H (1.0-4.8) k/uL Monocytes # (Manual) 2.09 H (0-1.0) k/uL Metamyelocytes # (Man) 0.70 H (0) k/uL Myelocytes # (Manual) 1.39 H (0) k/uL Blast Cells # (Man) 48.09 H (0) k/uL D-Dimer (<0.60) mg/L FEU Carbon Dioxide (22-30) mmol/L BUN (9-20) mg/dL Glucose (74-99) mg/dL POC Glucose (mg/dL) (75-99) mg/dL Troponin I 0.179 H* (0.000-0.034) ng/mL Crossmatch See Detail 09/27/17 09/27/17 09/27/17 Range/Units 06:07 06:07 06:07 WBC 103.1 H* (3.8-10.6) k/uL RBC 2.61 L (4.30-5.90) m/uL Hgb 8.7 L D (13.0-17.5) gm/dL Hct 24.6 L (39.0-53.0) % RDW 21.8 H (11.5-15.5) % Plt Count 30 L* (150-450) k/uL Neutrophils # (Manual) 10.30 H (1.3-7.7) k/uL Lymphocytes # (Manual) (1.0-4.8) k/uL Monocytes # (Manual) 2.06 H (0-1.0) k/uL Metamyelocytes # (Man) (0) k/uL Myelocytes # (Manual) 1.03 H (0) k/uL Blast Cells # (Man) 86.60 H (0) k/uL D-Dimer 3.21 H (<0.60) mg/L FEU Carbon Dioxide (22-30) mmol/L BUN (9-20) mg/dL Glucose (74-99) mg/dL POC Glucose (mg/dL) (75-99) mg/dL Troponin I 0.143 H* (0.000-0.034) ng/mL Crossmatch 09/27/17 09/27/17 Range/Units 06:07 10:40 WBC (3.8-10.6) k/uL RBC (4.30-5.90) m/uL Hgb (13.0-17.5) gm/dL Hct (39.0-53.0) % RDW (11.5-15.5) % Plt Count (150-450) k/uL Neutrophils # (Manual) (1.3-7.7) k/uL Lymphocytes # (Manual) (1.0-4.8) k/uL Monocytes # (Manual) (0-1.0) k/uL Metamyelocytes # (Man) (0) k/uL Myelocytes # (Manual) (0) k/uL Blast Cells # (Man) (0) k/uL D-Dimer (<0.60) mg/L FEU Carbon Dioxide 32 H (22-30) mmol/L BUN 22 H (9-20) mg/dL Glucose 133 H (74-99) mg/dL POC Glucose (mg/dL) 207 H (75-99) mg/dL Troponin I (0.000-0.034) ng/mL Crossmatch Thrombosis Risk Factor Assmnt - Choose All That Apply Each Factor Represents 1 point: Obesity (BMI >25) Each Risk Factor Represents 3 Points: Age 75 years or older Thrombosis Risk Factor Assessment Total Risk Factor Score: 4 Thrombosis Risk Factor Assessment Level: Moderate Risk Assessment and Plan Plan: 1. acute hypoxic respiratory failure secondary with evidence of bilateral infiltrates 2. Immunocompromised status 3. Acute on chronic lymphocytic leukemia 4. acute thrombocytopenia and anemia secondary to underlying acute on chronic lymphocytic leukemia. 5. acute hemoptysis secondary to bilateral interstitial infiltrates, again the most likely explanation is related to leukemic infiltrates bilaterally. 6. Underlying history of hypertension At this time patient is admitted to ICU he is receiving IV antibiotics, he received IV Lasix with minimal improvement through the night Received 2 units of red blood cell transfusion on presentation code status was changed to no code last night Continue to treat in the ICU prognosis is guarded
[2017-09-27] MEDS: methylPREDNISolone SOD SUCCI 125 MG/2 ML VIAL IV SCH ×3 (13:43→23:08)
[2017-09-27] MEDS: LORazepam 2 MG/ML INJ IV PRN ×2 (17:04→20:48)
[2017-09-27 17:31] LABS: Glucose,Whole Blood 224 mg/dL (75-99)
[2017-09-27] MEDS: INSULIN ASPART 100 UNIT/ML 1 ML 10 ML VIAL SQ SCH (17:38)
[2017-09-27 18:31] LABS: Hemoglobin A1C 7.1 % (4.0-6.0)
[2017-09-27 20:57] LABS: Glucose,Whole Blood 271 mg/dL (75-99)
[2017-09-27] MEDS: INSULIN REGULAR 100 UNIT in SODIUM CHLORIDE 0.9% 100 ML IV SCH (22:23)
[2017-09-27 22:32] LABS: Glucose,Whole Blood 221 mg/dL (75-99)
[2017-09-27 22:58] LABS: Glucose,Whole Blood 202 mg/dL (75-99)
[2017-09-27 23:53] LABS: Glucose,Whole Blood 152 mg/dL (75-99)
[2017-09-28 01:04] LABS: Glucose,Whole Blood 130 mg/dL (75-99)
[2017-09-28 02:05] LABS: Glucose,Whole Blood 149 mg/dL (75-99)
[2017-09-28 03:02] LABS: Glucose,Whole Blood 173 mg/dL (75-99)
[2017-09-28 03:53] LABS: Glucose,Whole Blood 164 mg/dL (75-99)
[2017-09-28 04:24] LABS: Anisocytosis Moderate; HCT 22.8 % (39.0-53.0); HGB 7.4 gm/dL (13.0-17.5); MCHC 32.3 g/dL (31.0-37.0); MCV 92.9 fL (80.0-100.0); Macrocytosis Slight; Mean Platelet Volume 9.7; RBC 2.46 m/uL (4.30-5.90); RDW 20.2 % (11.5-15.5)
[2017-09-28 04:37] LABS: Anion Gap 7 mmol/L; Blood Urea Nitrogen 31 mg/dL (9-20); Calcium 8.2 mg/dL (8.4-10.2); Carbon Dioxide 31 mmol/L (22-30); Chloride 101 mmol/L (98-107); Glucose 159 mg/dL (74-99); Magnesium 2.2 mg/dL (1.6-2.3); Phosphorus 3.8 mg/dL (2.5-4.5); Potassium 4.5 mmol/L (3.5-5.1); Sodium 139 mmol/L (137-145)
[2017-09-28 05:05] LABS: Glucose,Whole Blood 193 mg/dL (75-99)
[2017-09-28] MEDS: methylPREDNISolone SOD SUCCI 125 MG/2 ML VIAL IV SCH ×4 (05:26→23:51)
[2017-09-28 05:32] LABS: Band Neutrophils % 14 %; Myelocytes % 6 %; Neutrophils % (M) 21 %; Nucleated Red Blood Cells 2 /100 WBC (0-0); Total Cells Counted 200
[2017-09-28 05:34] LABS: Blast Cells # (M) 27.03 k/uL (0); Lymphocytes # (M) 6.33 k/uL (1.0-4.8); WBC 57.5 k/uL (3.8-10.6)
[2017-09-28 05:39] LABS: Monocytes # (M) 0.58 k/uL (0-1.0); Myelocytes # (M) 3.45 k/uL (0)
[2017-09-28 05:42] LABS: Platelet Count 18 k/uL (150-450)
[2017-09-28 06:01] LABS: Glucose,Whole Blood 152 mg/dL (75-99)
[2017-09-28 06:54] LABS: Glucose,Whole Blood 171 mg/dL (75-99)
[2017-09-28 06:54] LABS: Glucose,Whole Blood 168 mg/dL (75-99)
[2017-09-28] MEDS: IPRATROPIUM-ALBUTEROL 3 ML NEB INHALATION SCH ×4 (07:24→19:46)
--- NOTE | 2017-09-28 07:35 | XR ---
EXAMINATION TYPE: XR chest 1V portable DATE OF EXAM: 09/28/2017 Comparison: 09/26/2017 Clinical History: 82-year-old male Findings: The heart mildly enlarged. Worsening, now with diffuse bilateral airspace disease. Possible trace eff usions. Impression: Interval worsening now with bilateral diffuse airspace disease, probable pulmonary edema.
[2017-09-28] MEDS: HYDROXYUREA 500 MG CAP PO SCH ×2 (07:45→20:24)
[2017-09-28] MEDS: CEFEPIME 2 GM in SODIUM CHLORIDE 0.9% 50 ML IVPB SCH (07:45)
[2017-09-28] MEDS: ALLOPURINOL 300 MG TAB PO SCH (07:45)
[2017-09-28] MEDS: METOPROLOL TARTRATE 25 MG TAB PO SCH ×2 (07:45→20:23)
[2017-09-28] MEDS: FINASTERIDE 5 MG TAB PO SCH (07:46)
[2017-09-28] MEDS: PANTOPRAZOLE 40 MG/10 ML VIAL IV SCH (07:46)
[2017-09-28 08:06] LABS: Glucose,Whole Blood 220 mg/dL (75-99)
[2017-09-28 09:07] LABS: Glucose,Whole Blood 205 mg/dL (75-99)
[2017-09-28] MEDS: INSULIN ASPART 100 UNIT/ML 1 ML 10 ML VIAL SQ SCH (10:05)
[2017-09-28 10:09] LABS: Glucose,Whole Blood 223 mg/dL (75-99)
--- NOTE | 2017-09-28 10:25 | ECHOF ---
Referral Reason:dyspnea MEASUREMENTS -------- HEIGHT: 172.7 cm WEIGHT: 82.1 kg BP: 121/75 RVIDd: 2.7 cm (< 3.3) IVSd: 1.2 cm (0.6 - 1.1) LVIDd: 4.9 cm (3.9 - 5.3) LVPWd: 1.2 cm (0.6 - 1.1) IVSs: 1.7 cm LVIDs: 3.3 cm LVPWs: 1.9 cm LA Diam: 3.8 cm (2.7 - 3.8) LAESV Index (A-L): 29.19 ml/m Ao Diam: 3.6 cm (2.0 - 3.7) AV Cusp: 2.1 cm (1.5 - 2.6) MV EXCURSION: 19.089 mm (> 18.000) MV EF SLOPE: 115 mm/s (70 - 150) EPSS: 0.6 cm MV E Dmitriy: 1.29 m/s MV DecT: 259 ms MV A Dmitriy: 1.23 m/s MV E/A Ratio: 1.05 RAP: 15.00 mmHg RVSP: 72.02 mmHg FINDINGS -------- Sinus rhythm with extra systolic beats. This was a technically adequate study. The left ventricular size is normal. There is borderline concentric left ventricular hypertrophy. Overall left ventricular systolic function is normal with, an EF between 55 - 60 %. The right ventricle is normal in size. LA is midly dilated 29-33ml/m2. The right atrium is normal in size. There is mild aortic valve sclerosis. The mitral valve leaflets are mildly thickened. Mild mitral annular calcification present. [id number] tricuspid regurgitation present. There is severe pulmonary hypertension. The rig ht ventricular systolic pressure, as measured by Doppler, is 72.02mmHg. The pulmonic valve was not well visualized. The aortic root size is normal. The inferior vena cava is dilated with no significant inspiratory collapse which is consistent estima melissa right atrial pressure of >15 mmHg. CONCLUSIONS -------- 1. Sinus rhythm with extra systolic beats. 2. This was a technically adequate study. 3. The left ventricular size is normal. 4. There is borderline concentric left ventricular hypertrophy. 5. Overall left ventricular systolic function is normal with, an EF between 55 - 60 %. 6. The right ventricle is normal in size. 7. LA is midly dilated 29-33ml/m2. 8. The right atrium is normal in size. 9. There is mild aortic valve sclerosis. 10. The mitral valve leaflets are mildly thickened. 11. Mild mitral annular calcification present. 12. Xafr-sm-[id number] tricuspid regurgitation present. 13. There is severe pulmonary hypertension. 14. The right ventricular systolic pressure, as measured by Doppler, is 72.02mmHg. 15. The pulmonic valve was not well visualized. 16. The aortic root size is normal. 17. The inferior vena cava is dilated with no significant inspiratory collapse which is consistent es timated right atrial pressure of >15 mmHg. PRODUCTION LINE TECHNICIAN: Kate Mead RDCS
[2017-09-28 11:11] LABS: Glucose,Whole Blood 200 mg/dL (75-99)
--- NOTE | 2017-09-28 11:45 | P.PN ---
Subjective Progress Note Date: 09/28/17 Principal diagnosis: Acute respiratory failure Progress note dated 09/28/2017 This is a 82-year-old patient seen by my partner yesterday in consultation. He came into the hospital with acute hypoxemic respiratory failure with diffuse bilateral infiltrates. The differential diagnoses included leukemic infiltrates acute respiratory distress syndrome bilateral pneumonia or combination of these things. The patient's currently receiving 60 L/m oxygen via AIRVO. The patient also has a history of thrombocytopenia hemoptysis and hypertension. The patient is a DO NOT RESUSCITATE patient. He was started on antibiotics in the form of cefepime and vancomycin placed on high flow oxygen and given steroids and breathing treatments. He is a bit better today than he was yesterday. Currently he is getting an IV appointment 9 at 75 mL an hour. To make that KVO. He is getting an insulin drip at 4 units an hour. The patient will get some additional daily Lasix 40 mg IV push every 12 hours. Objective - Vital Signs Vital signs: Vital Signs Temp 98.3 F 09/28/17 08:00 Pulse 83 09/28/17 10:00 Resp 36 H 09/28/17 10:00 BP 140/74 09/28/17 10:00 Pulse Ox 89 L 09/28/17 10:00 Intake & Output 09/27/17 09/28/17 09/28/17 18:59 06:59 18:59 Intake Total 575 1099.863 225 Output Total 1275 785 140 Balance -700 314.863 85 Weight 85.8 kg 82.4 kg Intake: IV 575 1075 225 Cefepime 2 gm In Sodium 50 Chloride 0.9% 50 ml @ 100 mls/hr IVPB Q8HR [facility] Rx# :[id number] Sodium Chloride 0.9% 1, 525 825 225 000 ml @ 75 mls/hr IV . [id number] [facility] Rx#:[id number] Vancomycin 1,500 mg In 250 Sodium Chloride 0.9% 250 ml @ 125 mls/hr IVPB Q16H [facility] Rx#:[id number] Intake, IV Titration 24.863 Amount Insulin Regular 100 unit 24.863 In Sodium Chloride 0.9% 100 ml @ Per Protocol IV .Q0M [facility] Rx#:[id number] Output: Urine 1275 785 140 Other: Voiding Method Urinal Indwelling Catheter Indwelling Catheter - Exam No acute distress, oriented 3. The patient is a mildly tachypnea. HEENT examination is grossly unremarkable. Mucous membranes are moist. No oral lesions. Oxygen is in place. Neck supple. Full range of motion. No adenopathy thyromegaly or neck vein distention. Cardiovascular examination reveals regular rhythm rate. S1-S2 normal. No S3 or S4. No discernible murmur noted. Lungs reveal a few bilateral rhonchi and crackles. Breath sounds are diminished. No wheezes are noted. Her sounds are equal bilaterally.. Abdomen soft bowel sounds are heard. No masses or tenderness. Extremities are intact. No cyanosis clubbing or edema. Skin is without rash or lesion. Neurologic examination is brief but nonfocal. - Labs CBC & Chem 7: 09/28/17 03:50 09/28/17 03:50 Labs: Abnormal Lab Results - Last 24 Hours (Table) 09/27/17 09/27/17 09/27/17 Range/Units 06:07 17:29 20:54 WBC (3.8-10.6) k/uL RBC (4.30-5.90) m/uL Hgb (13.0-17.5) gm/dL Hct (39.0-53.0) % RDW (11.5-15.5) % Plt Count (150-450) k/uL Neutrophils # (Manual) (1.3-7.7) k/uL Lymphocytes # (Manual) (1.0-4.8) k/uL Myelocytes # (Manual) (0) k/uL Blast Cells # (Man) (0) k/uL Nucleated RBCs (0-0) /100 WBC Carbon Dioxide (22-30) mmol/L BUN (9-20) mg/dL Glucose (74-99) mg/dL POC Glucose (mg/dL) 224 H 271 H (75-99) mg/dL Hemoglobin A1c 7.1 H (4.0-6.0) % Calcium (8.4-10.2) mg/dL 09/27/17 09/27/17 09/27/17 Range/Units 22:30 22:57 23:51 WBC (3.8-10.6) k/uL RBC (4.30-5.90) m/uL Hgb (13.0-17.5) gm/dL Hct (39.0-53.0) % RDW (11.5-15.5) % Plt Count (150-450) k/uL Neutrophils # (Manual) (1.3-7.7) k/uL Lymphocytes # (Manual) (1.0-4.8) k/uL Myelocytes # (Manual) (0) k/uL Blast Cells # (Man) (0) k/uL Nucleated RBCs (0-0) /100 WBC Carbon Dioxide (22-30) mmol/L BUN (9-20) mg/dL Glucose (74-99) mg/dL POC Glucose (mg/dL) 221 H 202 H 152 H (75-99) mg/dL Hemoglobin A1c (4.0-6.0) % Calcium (8.4-10.2) mg/dL 09/28/17 09/28/17 09/28/17 Range/Units 01:03 02:00 03:00 WBC (3.8-10.6) k/uL RBC (4.30-5.90) m/uL Hgb (13.0-17.5) gm/dL Hct (39.0-53.0) % RDW (11.5-15.5) % Plt Count (150-450) k/uL Neutrophils # (Manual) (1.3-7.7) k/uL Lymphocytes # (Manual) (1.0-4.8) k/uL Myelocytes # (Manual) (0) k/uL Blast Cells # (Man) (0) k/uL Nucleated RBCs (0-0) /100 WBC Carbon Dioxide (22-30) mmol/L BUN (9-20) mg/dL Glucose (74-99) mg/dL POC Glucose (mg/dL) 130 H 149 H 173 H (75-99) mg/dL Hemoglobin A1c (4.0-6.0) % Calcium (8.4-10.2) mg/dL 09/28/17 09/28/17 09/28/17 Range/Units 03:50 03:50 03:52 WBC 57.5 H* (3.8-10.6) k/uL RBC 2.46 L (4.30-5.90) m/uL Hgb 7.4 L (13.0-17.5) gm/dL Hct 22.8 L (39.0-53.0) % RDW 20.2 H (11.5-15.5) % Plt Count 18 L* (150-450) k/uL Neutrophils # (Manual) 20.10 H (1.3-7.7) k/uL Lymphocytes # (Manual) 6.33 H (1.0-4.8) k/uL Myelocytes # (Manual) 3.45 H (0) k/uL Blast Cells # (Man) 27.03 H (0) k/uL Nucleated RBCs 2 H (0-0) /100 WBC Carbon Dioxide 31 H (22-30) mmol/L BUN 31 H (9-20) mg/dL Glucose 159 H (74-99) mg/dL POC Glucose (mg/dL) 164 H (75-99) mg/dL Hemoglobin A1c (4.0-6.0) % Calcium 8.2 L (8.4-10.2) mg/dL 09/28/17 09/28/17 09/28/17 Range/Units 05:02 06:00 06:51 WBC (3.8-10.6) k/uL RBC (4.30-5.90) m/uL Hgb (13.0-17.5) gm/dL Hct (39.0-53.0) % RDW (11.5-15.5) % Plt Count (150-450) k/uL Neutrophils # (Manual) (1.3-7.7) k/uL Lymphocytes # (Manual) (1.0-4.8) k/uL Myelocytes # (Manual) (0) k/uL Blast Cells # (Man) (0) k/uL Nucleated RBCs (0-0) /100 WBC Carbon Dioxide (22-30) mmol/L BUN (9-20) mg/dL Glucose (74-99) mg/dL POC Glucose (mg/dL) 193 H 152 H 171 H (75-99) mg/dL Hemoglobin A1c (4.0-6.0) % Calcium (8.4-10.2) mg/dL 09/28/17 09/28/17 09/28/17 Range/Units 06:52 08:05 09:05 WBC (3.8-10.6) k/uL RBC (4.30-5.90) m/uL Hgb (13.0-17.5) gm/dL Hct (39.0-53.0) % RDW (11.5-15.5) % Plt Count (150-450) k/uL Neutrophils # (Manual) (1.3-7.7) k/uL Lymphocytes # (Manual) (1.0-4.8) k/uL Myelocytes # (Manual) (0) k/uL Blast Cells # (Man) (0) k/uL Nucleated RBCs (0-0) /100 WBC Carbon Dioxide (22-30) mmol/L BUN (9-20) mg/dL Glucose (74-99) mg/dL POC Glucose (mg/dL) 168 H 220 H 205 H (75-99) mg/dL Hemoglobin A1c (4.0-6.0) % Calcium (8.4-10.2) mg/dL 09/28/17 09/28/17 Range/Units 10:08 11:09 WBC (3.8-10.6) k/uL RBC (4.30-5.90) m/uL Hgb (13.0-17.5) gm/dL Hct (39.0-53.0) % RDW (11.5-15.5) % Plt Count (150-450) k/uL Neutrophils # (Manual) (1.3-7.7) k/uL Lymphocytes # (Manual) (1.0-4.8) k/uL Myelocytes # (Manual) (0) k/uL Blast Cells # (Man) (0) k/uL Nucleated RBCs (0-0) /100 WBC Carbon Dioxide (22-30) mmol/L BUN (9-20) mg/dL Glucose (74-99) mg/dL POC Glucose (mg/dL) 223 H 200 H (75-99) mg/dL Hemoglobin A1c (4.0-6.0) % Calcium (8.4-10.2) mg/dL Microbiology - Last 24 Hours (Table) 09/26/17 12:33 Blood Culture - Preliminary Blood No Growth after 24 hours Assessment and Plan (1) Pneumonia Current Visit: Yes Status: Acute Code(s): J18.9 - PNEUMONIA, UNSPECIFIED ORGANISM SNOMED Code(s): 804460844 (2) Hypertension Current Visit: Yes Status: Acute Code(s): I10 - ESSENTIAL (PRIMARY) HYPERTENSION SNOMED Code(s): 13453429 (3) Hemoptysis Current Visit: Yes Status: Acute Code(s): R04.2 - HEMOPTYSIS SNOMED Code(s ): 49726837 (4) Chronic lymphocytic leukemia Current Visit: Yes Status: Acute Code(s): C91.10 - CHRONIC LYMPHOCYTIC LEUK OF B-CELL TYPE NOT ACHIEVE REMIS SNOMED Code(s): 15376466 (5) Thrombocytopenia Current Visit: Yes Status: Acute Code(s): D69.6 - THROMBOCYTOPENIA, UNSPECIFIED SNOMED Code(s): 262684817 (6) Acute hypoxemic respiratory failure Current Visit: Yes Status: Acute Code(s): J96.01 - ACUTE RESPIRATORY FAILURE WITH HYPOXIA SNOMED Code(s): 932154697 (7) Acute respiratory failure Current Visit: Yes Status: Acute Code(s): J96.00 - ACUTE RESPIRATORY FAILURE , UNSP W HYPOXIA OR HYPERCAPNIA SNOMED Code(s): 82529422 (8) Congestive heart failure Current Visit: Yes Status: Acute Code(s): I50.9 - HEART FAILURE, UNSPECIFIED SNOMED Code(s): 43518443 (9) Febrile illness, acute Current Visit: Yes Status: Acute Code(s): R50.9 - FEVER, UNSPECIFIED SNOMED Code(s): 954722611 (10) Leukemia Current Visit: Yes Status: Acute Code(s): C95.90 - LEUKEMIA, UNSPECIFIED NOT HAVING ACHIEVED REMISSION SNOMED Code(s): 29406196 (11) Symptomatic anemia Current Visit: Yes Status: Acute Code(s): D64.9 - ANEMIA, UNSPECIFIED SNOMED Code(s): 211548462 Plan: Plan dated 09/28/2017 The patient's medications are reviewed. The patient is on good antibiotics. The patient will continue stay here in the ICU. The patient is very critically ill. The patient's x-rays look pretty bad. It appears that he has diffuse infiltrates potentially consistent with either diffuse pneumonia, versus acute lung injury/acute respiratory distress syndrome, versus acute leukemic infiltrates of the lung. Labs x-rays a medications are all reviewed. Prognosis is poor. Time with Patient: Greater than 30
--- NOTE | 2017-09-28 12:15 | PN ---
PROGRESS NOTE HISTORY: Mr. Baez is an 82-year-old male who was recently diagnosed with AML, who presented with symptoms of progressive dyspnea. He had diffuse interstitial infiltrates. He had a significant anemia noted. He had difficulty breathing yesterday, slightly better today. Hemodynamically, he has continued to be stable. He is on cefepime, Proscar, hydroxyurea, metoprolol tartrate 25 mg twice a day, and vancomycin. PHYSICAL EXAMINATION: Blood pressure 126/60 with a heart in the 80s. Lungs with scattered rhonchi and crackles. Heart rate rhythm S1, S2. No S3. No rub appreciated. Abdomen is soft, nontender. Extremities, no edema. LAB DATA: Hemoglobin 11.4, platelet count of 18,000, white blood cells 57.5. BUN and creatinine 31 and 1.02. Chest x-ray revealed diffuse bilateral infiltrates. IMPRESSION: 1. Leukemia with severe anemia. 2. Probable pneumonia with bilateral infiltrate in an immunocompromised patient. The patient is presenting with a picture that could be seen consistent with ARDS or he could have leukemic infiltrate. 3. Prior history of hypertension. RECOMMENDATIONS: From the cardiac standpoint, we will continue supportive care. I will review the results of his echocardiogram. Depending on his progress, further recommendation will be made. MMODL / IJN: [id number] /
[2017-09-28 12:18] LABS: Glucose,Whole Blood 175 mg/dL (75-99)
[2017-09-28 12:19] LABS: Anisocytosis Slight; HCT 22.2 % (39.0-53.0); HGB 7.2 gm/dL (13.0-17.5); MCH 29.8 pg (25.0-35.0); MCHC 32.4 g/dL (31.0-37.0); MCV 91.9 fL (80.0-100.0); Macrocytosis Slight; Mean Platelet Volume 9.9; RBC 2.42 m/uL (4.30-5.90); RDW 19.9 % (11.5-15.5)
[2017-09-28 12:22] LABS: Platelet Count 20 k/uL (150-450); WBC 51.9 k/uL (3.8-10.6)
--- NOTE | 2017-09-28 12:22 | P.PN ---
Subjective Progress Note Date: 09/28/17 Moe Baez is a 82-year-old male with a history of leukemia and anemia who presents with complaints of shortness of breath for the past couple days which is getting worse. He received blood transfusion as outpatient also received a course of oral antibiotic his condition continued to worsen and he decided to come to emergency room where he was admitted to medical floor. Patient was seen by hematology and 2 units of red blood cells were ordered, he was having worsening shortness of breath he received IV Lasix and was transferred to intensive care unit. Pulmonary consultation and cardiology consultation were requested. He shouldn't has a known history of leukemia and is followed by oncology as outpatient. 09/28/2017 patient is currently in the ICU receiving 60 L/m oxygen via AIRVO. Remains on antibiotics in the form of cefepime and vancomycin IV steroids and breathing treatments. Pulmonary service and oncology following closely. Patient is still having shortness of breath. Cough. Denies any chest pain. Denies a nausea vomiting. Denies any bowel movement changes or urinary symptoms. CODE STATUS was changed to DO NOT RESUSCITATE yesterday Objective - Vital Signs Vital signs: Vital Signs Temp 98.3 F 09/28/17 08:00 Pulse 84 09/28/17 11:48 Resp 36 H 09/28/17 10:00 BP 140/74 09/28/17 10:00 Pulse Ox 89 L 09/28/17 10:00 Intake & Output 09/27/17 09/28/17 09/28/17 18:59 06:59 18:59 Intake Total 575 1099.863 225 Output Total 1275 785 140 Balance -700 314.863 85 Weight 85.8 kg 82.4 kg Intake: IV 575 1075 225 Cefepime 2 gm In Sodium 50 Chloride 0.9% 50 ml @ 100 mls/hr IVPB Q8HR [facility] Rx# :[id number] Sodium Chloride 0.9% 1, 525 825 225 000 ml @ 75 mls/hr IV . [id number] [facility] Rx#:[id number] Vancomycin 1,500 mg In 250 Sodium Chloride 0.9% 250 ml @ 125 mls/hr IVPB Q16H [facility] Rx#:[id number] Intake, IV Titration 24.863 Amount Insulin Regular 100 unit 24.863 In Sodium Chloride 0.9% 100 ml @ Per Protocol IV .Q0M [facility] Rx#:[id number] Output: Urine 1275 785 140 Other: Voiding Method Urinal Indwelling Catheter Indwelling Catheter - Exam 1. acute hypoxic respiratory failure secondary with evidence of bilateral infiltrates. Pulmonary following closely. Symptoms could be related to leukemic infiltrates secondary to worsening acute on chronic lymphocytic leukemia bilateral pneumonia and in a immunocompromised patient. Pulmonary and oncology are following. Continue with antibiotics cefepime and vancomycin. Continue with ICU management per pulmonary service. 2. Immunocompromised status 3. Acute on chronic lymphocytic leukemia. White count down to 57.4. Oncology started Hydrea 4. acute thrombocytopenia and anemia secondary to underlying acute on chronic lymphocytic leukemia. 5. acute hemoptysis secondary to bilateral interstitial infiltrates, again the most likely explanation is related to leukemic infiltrates bilaterally. 6. Underlying history of hypertension 7. Acute on chronic anemia due to patient's leukemia and hemoptysis. Patient required 2 units of blood. Hemoglobin 7.4 CODE STATUS DO NOT RESUSCITATE I performed an examination of the patient and discussed their management with the physician Nurse'S Aides Teacher. I have reviewed the Physician Nurse'S Aides Teacher's notes and agree with the documented findings and plan of care - Labs CBC & Chem 7: 09/28/17 03:50 09/28/17 03:50 Labs: Abnormal Lab Results - Last 24 Hours (Table) 09/27/17 09/27/17 09/27/17 Range/Units 06:07 17:29 20:54 WBC (3.8-10.6) k/uL RBC (4.30-5.90) m/uL Hgb (13.0-17.5) gm/dL Hct (39.0-53.0) % RDW (11.5-15.5) % Plt Count (150-450) k/uL Neutrophils # (Manual) (1.3-7.7) k/uL Lymphocytes # (Manual) (1.0-4.8) k/uL Myelocytes # (Manual) (0) k/uL Blast Cells # (Man) (0) k/uL Nucleated RBCs (0-0) /100 WBC Carbon Dioxide (22-30) mmol/L BUN (9-20) mg/dL Glucose (74-99) mg/dL POC Glucose (mg/dL) 224 H 271 H (75-99) mg/dL Hemoglobin A1c 7.1 H (4.0-6.0) % Calcium (8.4-10.2) mg/dL 09/27/17 09/27/17 09/27/17 Range/Units 22:30 22:57 23:51 WBC (3.8-10.6) k/uL RBC (4.30-5.90) m/uL Hgb (13.0-17.5) gm/dL Hct (39.0-53.0) % RDW (11.5-15.5) % Plt Count (150-450) k/uL Neutrophils # (Manual) (1.3-7.7) k/uL Lymphocytes # (Manual) (1.0-4.8) k/uL Myelocytes # (Manual) (0) k/uL Blast Cells # (Man) (0) k/uL Nucleated RBCs (0-0) /100 WBC Carbon Dioxide (22-30) mmol/L BUN (9-20) mg/dL Glucose (74-99) mg/dL POC Glucose (mg/dL) 221 H 202 H 152 H (75-99) mg/dL Hemoglobin A1c (4.0-6.0) % Calcium (8.4-10.2) mg/dL 09/28/17 09/28/17 09/28/17 Range/Units 01:03 02:00 03:00 WBC (3.8-10.6) k/uL RBC (4.30-5.90) m/uL Hgb (13.0-17.5) gm/dL Hct (39.0-53.0) % RDW (11.5-15.5) % Plt Count (150-450) k/uL Neutrophils # (Manual) (1.3-7.7) k/uL Lymphocytes # (Manual) (1.0-4.8) k/uL Myelocytes # (Manual) (0) k/uL Blast Cells # (Man) (0) k/uL Nucleated RBCs (0-0) /100 WBC Carbon Dioxide (22-30) mmol/L BUN (9-20) mg/dL Glucose (74-99) mg/dL POC Glucose (mg/dL) 130 H 149 H 173 H (75-99) mg/dL Hemoglobin A1c (4.0-6.0) % Calcium (8.4-10.2) mg/dL 09/28/17 09/28/17 09/28/17 Range/Units 03:50 03:50 03:52 WBC 57.5 H* (3.8-10.6) k/uL RBC 2.46 L (4.30-5.90) m/uL Hgb 7.4 L (13.0-17.5) gm/dL Hct 22.8 L (39.0-53.0) % RDW 20.2 H (11.5-15.5) % Plt Count 18 L* (150-450) k/uL Neutrophils # (Manual) 20.10 H (1.3-7.7) k/uL Lymphocytes # (Manual) 6.33 H (1.0-4.8) k/uL Myelocytes # (Manual) 3.45 H (0) k/uL Blast Cells # (Man) 27.03 H (0) k/uL Nucleated RBCs 2 H (0-0) /100 WBC Carbon Dioxide 31 H (22-30) mmol/L BUN 31 H (9-20) mg/dL Glucose 159 H (74-99) mg/dL POC Glucose (mg/dL) 164 H (75-99) mg/dL Hemoglobin A1c (4.0-6.0) % Calcium 8.2 L (8.4-10.2) mg/dL 09/28/17 09/28/17 09/28/17 Range/Units 05:02 06:00 06:51 WBC (3.8-10.6) k/uL RBC (4.30-5.90) m/uL Hgb (13.0-17.5) gm/dL Hct (39.0-53.0) % RDW (11.5-15.5) % Plt Count (150-450) k/uL Neutrophils # (Manual) (1.3-7.7) k/uL Lymphocytes # (Manual) (1.0-4.8) k/uL Myelocytes # (Manual) (0) k/uL Blast Cells # (Man) (0) k/uL Nucleated RBCs (0-0) /100 WBC Carbon Dioxide (22-30) mmol/L BUN (9-20) mg/dL Glucose (74-99) mg/dL POC Glucose (mg/dL) 193 H 152 H 171 H (75-99) mg/dL Hemoglobin A1c (4.0-6.0) % Calcium (8.4-10.2) mg/dL 09/28/17 09/28/17 09/28/17 Range/Units 06:52 08:05 09:05 WBC (3.8-10.6) k/uL RBC (4.30-5.90) m/uL Hgb (13.0-17.5) gm/dL Hct (39.0-53.0) % RDW (11.5-15.5) % Plt Count (150-450) k/uL Neutrophils # (Manual) (1.3-7.7) k/uL Lymphocytes # (Manual) (1.0-4.8) k/uL Myelocytes # (Manual) (0) k/uL Blast Cells # (Man) (0) k/uL Nucleated RBCs (0-0) /100 WBC Carbon Dioxide (22-30) mmol/L BUN (9-20) mg/dL Glucose (74-99) mg/dL POC Glucose (mg/dL) 168 H 220 H 205 H (75-99) mg/dL Hemoglobin A1c (4.0-6.0) % Calcium (8.4-10.2) mg/dL 09/28/17 09/28/17 Range/Units 10:08 11:09 WBC (3.8-10.6) k/uL RBC (4.30-5.90) m/uL Hgb (13.0-17.5) gm/dL Hct (39.0-53.0) % RDW (11.5-15.5) % Plt Count (150-450) k/uL Neutrophils # (Manual) (1.3-7.7) k/uL Lymphocytes # (Manual) (1.0-4.8) k/uL Myelocytes # (Manual) (0) k/uL Blast Cells # (Man) (0) k/uL Nucleated RBCs (0-0) /100 WBC Carbon Dioxide (22-30) mmol/L BUN (9-20) mg/dL Glucose (74-99) mg/dL POC Glucose (mg/dL) 223 H 200 H (75-99) mg/dL Hemoglobin A1c (4.0-6.0) % Calcium (8.4-10.2) mg/dL Microbiology - Last 24 Hours (Table) 09/26/17 12:33 Blood Culture - Preliminary Blood No Growth after 24 hours
--- NOTE | 2017-09-28 12:40 | CDI ---
Last Revision, August 2017 Documentation Clarification Form Date: 09/28/2017 12:30:00 PM From: Alena Wu Admit Date: 09/26/2017 3:39:00 PM Patient Name: Moe Baez Visit Number: [id number] Discharge Date: ATTENTION: The Clinical Documentation Specialists (CDI) and [facility] Coding Staff appreciate your assistance in clarifying documentation. Please respond to the clarification below the line at the bottom and electronically sign. The CDI & [facility] Coding staff will review the response and follow-up if needed. Please note: Queries are made part of the Legal Health Record. If you have any questions, please contact the author of this message via ITS. Dr. Wilbert Mckinley: Patient presented with SOB, upper respiratory symtpoms and severe anemia, failure outpatient treatment with antibiotics and blood transfusion. History/Risk Factors: Immunocompromised with AML. Clinical Indicators: Fever, chills, sob. LAB: WBC: 69.7, Hgb 6.2, Hct 18.5, Pl Ct 31, Neut 13.20, Na 134, Gluc 294, elev trops. Lactic acid: (1.9) Blood cultures: Negative @ 24 hrs. Vitals signs on admission: T 98.1-100.8^, P 124^, R 20, BP 137/60, PO 83 ra. Treatment: Neuro cks, IV fl 100, IV Narcan, Iv Zofran, IV Maxipime, IV fl 20, IV Lasix, admit to ICU. In your professional opinion, please clarify if these findings signify one of the following conditions, whether the condition is POA, and cause, if known: Sepsis, ruled in or ruled out SIRS, without underlying infectious process Severe Sepsis Septic Shock Other, please specify Unable to determine Present on Admission: Yes or No Identify the (suspected) organism, if known: Link or clarify if there is associated (due to/with): Organ failure or Shock Please continue to document in your progress notes and discharge summary in order to capture severity of illness and risk of mortality. Include clinical findings that support your diagnosis. MTDD
[2017-09-28] MEDS: FUROSEMIDE 10 MG/ML 4 ML VIAL IV SCH ×2 (13:02→20:24)
[2017-09-28] MEDS: SODIUM CHLORIDE 0.9% 1,000 ML IV SCH (13:02)
[2017-09-28 13:51] LABS: Glucose,Whole Blood 187 mg/dL (75-99)
[2017-09-28 16:09] LABS: Glucose,Whole Blood 201 mg/dL (75-99)
[2017-09-28] MEDS: VANCOMYCIN 1,500 MG in SODIUM CHLORIDE 0.9% 250 ML IVPB SCH ×3 (17:21)
[2017-09-28 18:00] LABS: Glucose,Whole Blood 223 mg/dL (75-99)
[2017-09-28 19:57] LABS: Glucose,Whole Blood 248 mg/dL (75-99)
[2017-09-28] MEDS: INSULIN REGULAR 100 UNIT in SODIUM CHLORIDE 0.9% 100 ML IV SCH (20:34)
[2017-09-28] MEDS: LORazepam 2 MG/ML INJ IV PRN (20:46)
[2017-09-28] MEDS ORDERED: CEFEPIME 2 GM in SODIUM CHLORIDE 0.9% 50 ML IVPB SCH (21:00)
[2017-09-28 22:04] LABS: Glucose,Whole Blood 162 mg/dL (75-99)
--- NOTE | 2017-09-28 22:16 | P.CONS ---
History of Present Illness - Reason for Consult Consult date: 09/27/17 AML with progression. Progressive anemia and shortness of breath - History of Present Illness The patient is an 82-year-old gentleman, diagnosed with acute myeloid leukemia in 06/30. He is not currently on any treatment. he had started to show evidence of progression in 08/30. The office is currently trying to get a nimesh for him to start an investigational medication, specifically Venetoclax, to be combined with a hypomethylating agent. He has had chronically low counts and has been receiving supportive transfusions. Hemoglobin on 09/22/17 was 8. The patient came into the emergency room, as he was having progressive shortness of breath and weakness over the last 2 days. In the emergency room hemoglobin was found to be in the 6 range. White count was significantly elevated to 69,000 with predominant blasts. Today 's further increase 203,000 again with predominant blasts. His respiratory status has continued to decline and his now on 15 L of oxygen. Consult was therefore placed a further evaluation and recommendations Review of Systems Constitutional: Reports fatigue, Reports poor appetite, Reports weakness Eyes: denies blurred vision, denies pain Ears: deny: decreased hearing, ear discharge, earache, tinnitus Ears, nose, mouth and throat: Denies headache, Denies sore throat Cardiovascular: Reports dyspnea on exertion, Reports shortness of breath Respiratory: Reports dyspnea Gastrointestinal: Denies abdominal pain, Denies diarrhea, Denies nausea, Denies vomiting Genitourinary: Reports urinary frequency Musculoskeletal: Reports muscle weakness Integumentary: Denies pruritus, Denies rash Neurological: Reports weakness Psychiatric: Denies anxiety, Denies depression Endocrine: Reports fatigue Hematologic/Lymphatic: Reports as per HPI Past Medical History Past Medical History: Cancer Additional Past Medical History / Comment(s): AML History of Any Multi-Drug Resistant Organisms: None Reported Past Surgical History: Hernia Repair Additional Past Surgical History / Comment(s): hernia repair 1963 Past Psychological History: No Psychological Hx Reported Smoking Status: Never smoker Past Alcohol Use History: Occasional Past Drug Use History: None Reported Medications and Allergies Home Medications Medication Instructions Recorded Confirmed Type Finasteride [Proscar] 5 mg PO DAILY 07/14/17 09/26/17 History Cephalexin [Keflex] 500 mg PO Q8HR 09/26/17 09/26/17 History Bhavna-C 1 packet PO DAILY 09/26/17 09/26/17 History amLODIPine [Norvasc] 5 mg PO DAILY 09/26/17 09/26/17 History Allergies Allergy/AdvReac Type Severity Reaction Status Date / Time No Known Allergies Allergy Verified 09/26/17 12:39 Physical Exam Vitals: Vital Signs Temp Pulse Pulse Resp BP BP Pulse Ox 09/27/17 08:18 88 09/27/17 08:11 88 09/27/17 08:08 92 L 09/27/17 07:53 97 F L 96 22 131/60 90 L 09/27/17 04:30 94 L 09/27/17 04:00 98.6 F 99 22 119/65 88 L 09/27/17 02:35 93 L 09/27/17 01:20 92 L 09/27/17 01:00 83 L 09/27/17 00:35 97.6 F 108 H 18 122/48 90 L 09/27/17 00:15 94 L 09/27/17 00:00 98 18 88 L 09/26/17 22:00 97 F L 98 18 114/70 91 L 09/26/17 21:30 97.9 F 108 H 18 129/71 93 L 09/26/17 21:20 98 F 112 H 18 126/73 92 L 09/26/17 20:00 98 F 112 H 18 135/69 92 L 09/26/17 19:59 98 F 112 H 18 135/69 92 L 09/26/17 18:04 97.3 F L 96 18 133/66 93 L 09/26/17 17:34 97.2 F L 91 18 120/59 91 L 09/26/17 17:24 98.8 F 116 H 18 139/75 95 09/26/17 16:06 96.6 F L 109 H 18 127/64 90 L 09/26/17 15:39 96 16 164/79 93 L 09/26/17 13:44 108 H 16 127/70 93 L 09/26/17 12:26 100.8 F H 09/26/17 11:57 98.1 F 124 H 20 137/60 83 L Intake and Output 09/26/17 09/27/17 09/27/17 22:59 06:59 14:59 Intake Total 550 310 Output Total 175 525 Balance 375 -215 Intake: Oral 240 0 Blood Product 310 310 Rc As-1 Unit 0 310 [id number] Rc As-1 Unit 310 [id number] Output: Urine 175 525 Other: Voiding Method Toilet Toilet Toilet Urinal Urinal Urinal Weight 81.647 kg 85.9 kg - Constitutional General appearance: mild distress - EENT Eyes: EOMI, PERRLA ENT: hearing grossly normal, normal oropharynx - Neck Neck: no lymphadenopathy Thyroid: bilateral: normal size - Respiratory Respiratory: bilateral: diminished - Cardiovascular Rhythm: regular Heart sounds: normal: S1, S2 - Gastrointestinal General gastrointestinal: normal bowel sounds, soft - Integumentary Integumentary: normal - Neurologic Neurologic: CNII-XII intact - Musculoskeletal Musculoskeletal: generalized weakness, strength equal bilaterally - Psychiatric Psychiatric: A&O x's 3, appropriate affect Results CBC & Chem 7: 09/28/17 12:00 09/28/17 03:50 Labs: Abnormal Lab Results - Last 24 Hours (Table) 09/26/17 09/26/17 09/26/17 Range/Units 12:33 12:33 12:33 WBC 69.7 H* (3.8-10.6) k/uL RBC 2.03 L (4.30-5.90) m/uL Hgb 6.2 L* (13.0-17.5) gm/dL Hct 18.5 L* (39.0-53.0) % RDW 22.9 H (11.5-15.5) % Plt Count 31 L* (150-450) k/uL Neutrophils # (Manual) 13.20 H (1.3-7.7) k/uL Lymphocytes # (Manual) 5.58 H (1.0-4.8) k/uL Monocytes # (Manual) 2.09 H (0-1.0) k/uL Metamyelocytes # (Man) 0.70 H (0) k/uL Myelocytes # (Manual) 1.39 H (0) k/uL Blast Cells # (Man) 48.09 H (0) k/uL PT (9.0-12.0) sec INR (<1.2) D-Dimer (<0.60) mg/L FEU Sodium (137-145) mmol/L BUN (9-20) mg/dL Glucose (74-99) mg/dL ALT (21-72) U/L Total Creatine Kinase 36 L (55-170) U/L Troponin I 0.112 H* (0.000-0.034) ng/mL Total Protein (6.3-8.2) g/dL Albumin (3.5-5.0) g/dL Crossmatch See Detail 09/26/17 09/26/17 09/27/17 Range/Units 12:33 12:33 01:13 WBC (3.8-10.6) k/uL RBC (4.30-5.90) m/uL Hgb (13.0-17.5) gm/dL Hct (39.0-53.0) % RDW (11.5-15.5) % Plt Count (150-450) k/uL Neutrophils # (Manual) (1.3-7.7) k/uL Lymphocytes # (Manual) (1.0-4.8) k/uL Monocytes # (Manual) (0-1.0) k/uL Metamyelocytes # (Man) (0) k/uL Myelocytes # (Manual) (0) k/uL Blast Cells # (Man) (0) k/uL PT 12.2 H (9.0-12.0) sec INR 1.3 H (<1.2) D-Dimer (<0.60) mg/L FEU Sodium 134 L (137-145) mmol/L BUN 21 H (9-20) mg/dL Glucose 294 H (74-99) mg/dL ALT 115 H (21-72) U/L Total Creatine Kinase (55-170) U/L Troponin I 0.179 H* (0.000-0.034) ng/mL Total Protein 6.2 L (6.3-8.2) g/dL Albumin 3.2 L (3.5-5.0) g/dL Crossmatch 09/27/17 09/27/17 09/27/17 Range/Units 06:07 06:07 06:07 WBC 103.1 H* (3.8-10.6) k/uL RBC 2.61 L (4.30-5.90) m/uL Hgb 8.7 L D (13.0-17.5) gm/dL Hct 24.6 L (39.0-53.0) % RDW 21.8 H (11.5-15.5) % Plt Count 30 L* (150-450) k/uL Neutrophils # (Manual) 10.30 H (1.3-7.7) k/uL Lymphocytes # (Manual) (1.0-4.8) k/uL Monocytes # (Manual) 2.06 H (0-1.0) k/uL Metamyelocytes # (Man) (0) k/uL Myelocytes # (Manual) 1.03 H (0) k/uL Blast Cells # (Man) 86.60 H (0) k/uL PT (9.0-12.0) sec INR (<1.2) D-Dimer 3.21 H (<0.60) mg/L FEU Sodium (137-145) mmol/L BUN (9-20) mg/dL Glucose (74-99) mg/dL ALT (21-72) U/L Total Creatine Kinase (55-170) U/L Troponin I 0.143 H* (0.000-0.034) ng/mL Total Protein (6.3-8.2) g/dL Albumin (3.5-5.0) g/dL Crossmatch Chest x-ray: report reviewed Assessment and Plan (1) Leukemia Narrative/Plan: The patient has acute myeloid leukemia, not currently on treatment. As noted , it is planned to start him on a new regimen, but the medication has not yet been obtained. In the meantime, the patient appears to have started progressing very rapidly. He has become very short of breath over the last couple of days, and white blood count has increased markedly even within the last 24 hours with predominance of blasts. In this situation is felt that his overall prognosis is very poor. This was discussed frankly with him. He will be started on high dose Hydrea to try to improve his white count and stabilize his symptoms. Unfortunately, given the pace of the disease, there is no guarantee that this intervention will work. In that situation it is very unlikely that he would be able to start a regimen, and that it would be effective in time. Therefore his prognosis is felt to be very guarded. The patient expressed understanding. Hydrea will be started. He will also be started on allopurinol, and monitored for evidence of tumor lysis. the case was discussed with pulmonary and critical care service. The patient is being transferred to the ICU for more aggressive supportive care Current Visit: Yes Status: Acute Code(s): C95.90 - LEUKEMIA, UNSPECIFIED NOT HAVING ACHIEVED REMISSION SNOMED Code(s): 66848688 (2) Acute respiratory failure Narrative/Plan: Chest x-ray shows bilateral congestive changes. This is most likely due to pulmonary leukostasis related to his high white cells and blasts in the blood. As noted, he has been started on Hydrea for cytoreduction. Continue aggressive hydration. If the patient does show signs of fluid overload, hydration should still be continued and he should receive diuresis as needed Current Visit: Yes Status: Acute Code(s): J96.00 - ACUTE RESPIRATORY FAILURE , UNSP W HYPOXIA OR HYPERCAPNIA SNOMED Code(s): 88499819 Plan: As noted above, the patient's overall prognosis is felt to be poor. Therefore in this situation, in my opinion, the patient would be unlikely to benefit from CPR or intubation if he were to decline to that point despite ongoing aggressive medical care. I discussed the same frankly with him, and recommended no Code no CPR. He was agreeable to the same. CODE STATUS will be changed in the chart.
--- NOTE | 2017-09-28 22:27 | P.PN ---
Subjective Progress Note Date: 09/28/17 patient continues to be quite short of breath but feels slightly better today. He is not having any fever, chills, nausea or vomiting. He has noted small amounts of blood on blowing his nose. Objective - Vital Signs Vital signs: Vital Signs Temp 98.4 F 09/28/17 12:00 Pulse 107 H 09/28/17 20:14 Resp 31 H 09/28/17 19:00 BP 148/81 09/28/17 19:00 Pulse Ox 92 L 09/28/17 19:53 Intake & Output 09/28/17 09/28/17 09/29/17 06:59 18:59 06:59 Intake Total 1099.863 440 68.143 Output Total 785 1450 Balance 314.863 -1010 68.143 Weight 82.4 kg Intake: IV 1075 440 20 Sodium Chloride 0.9% 1, 825 440 20 000 ml @ 20 mls/hr IV . Q24H [facility] Rx#:[id number] Vancomycin 1,500 mg In 250 Sodium Chloride 0.9% 250 ml @ 125 mls/hr IVPB Q16H [facility] Rx#:[id number] Intake, IV Titration 24.863 48.143 Amount Insulin Regular 100 unit 24.863 48.143 In Sodium Chloride 0.9% 100 ml @ Per Protocol IV .Q0M [facility] Rx#:[id number] Oral 0 Output: Urine 785 1450 Other: Voiding Method Indwelling Catheter Indwelling Catheter - Constitutional General appearance: Present: mild distress - EENT Eyes: Present: EOMI, PERRLA ENT: Present: hearing grossly normal, normal oropharynx - Respiratory Respiratory: bilateral: diminished - Cardiovascular Rhythm: regular Heart sounds: normal: S1, S2 - Gastrointestinal General gastrointestinal: Present: normal bowel sounds, soft - Integumentary Integumentary: Present: normal - Neurologic Neurologic: Present: CNII-XII intact - Musculoskeletal Musculoskeletal: Present: generalized weakness, strength equal bilaterally - Psychiatric Psychiatric: Present: A&O x's 3, appropriate affect - Labs CBC & Chem 7: 09/28/17 12:00 09/28/17 03:50 Labs: Abnormal Lab Results - Last 24 Hours (Table) 09/27/17 09/27/17 09/27/17 Range/Units 06:07 22:30 22:57 WBC (3.8-10.6) k/uL RBC (4.30-5.90) m/uL Hgb (13.0-17.5) gm/dL Hct (39.0-53.0) % RDW (11.5-15.5) % Plt Count (150-450) k/uL Neutrophils # (Manual) (1.3-7.7) k/uL Lymphocytes # (Manual) (1.0-4.8) k/uL Myelocytes # (Manual) (0) k/uL Blast Cells # (Man) (0) k/uL Nucleated RBCs (0-0) /100 WBC Carbon Dioxide (22-30) mmol/L BUN (9-20) mg/dL Glucose (74-99) mg/dL POC Glucose (mg/dL) 221 H 202 H (75-99) mg/dL Hemoglobin A1c 7.1 H (4.0-6.0) % Calcium (8.4-10.2) mg/dL 09/27/17 09/28/17 09/28/17 Range/Units 23:51 01:03 02:00 WBC (3.8-10.6) k/uL RBC (4.30-5.90) m/uL Hgb (13.0-17.5) gm/dL Hct (39.0-53.0) % RDW (11.5-15.5) % Plt Count (150-450) k/uL Neutrophils # (Manual) (1.3-7.7) k/uL Lymphocytes # (Manual) (1.0-4.8) k/uL Myelocytes # (Manual) (0) k/uL Blast Cells # (Man) (0) k/uL Nucleated RBCs (0-0) /100 WBC Carbon Dioxide (22-30) mmol/L BUN (9-20) mg/dL Glucose (74-99) mg/dL POC Glucose (mg/dL) 152 H 130 H 149 H (75-99) mg/dL Hemoglobin A1c (4.0-6.0) % Calcium (8.4-10.2) mg/dL 09/28/17 09/28/17 09/28/17 Range/Units 03:00 03:50 03:50 WBC 57.5 H* (3.8-10.6) k/uL RBC 2.46 L (4.30-5.90) m/uL Hgb 7.4 L (13.0-17.5) gm/dL Hct 22.8 L (39.0-53.0) % RDW 20.2 H (11.5-15.5) % Plt Count 18 L* (150-450) k/uL Neutrophils # (Manual) 20.10 H (1.3-7.7) k/uL Lymphocytes # (Manual) 6.33 H (1.0-4.8) k/uL Myelocytes # (Manual) 3.45 H (0) k/uL Blast Cells # (Man) 27.03 H (0) k/uL Nucleated RBCs 2 H (0-0) /100 WBC Carbon Dioxide 31 H (22-30) mmol/L BUN 31 H (9-20) mg/dL Glucose 159 H (74-99) mg/dL POC Glucose (mg/dL) 173 H (75-99) mg/dL Hemoglobin A1c (4.0-6.0) % Calcium 8.2 L (8.4-10.2) mg/dL 09/28/17 09/28/17 09/28/17 Range/Units 03:52 05:02 06:00 WBC (3.8-10.6) k/uL RBC (4.30-5.90) m/uL Hgb (13.0-17.5) gm/dL Hct (39.0-53.0) % RDW (11.5-15.5) % Plt Count (150-450) k/uL Neutrophils # (Manual) (1.3-7.7) k/uL Lymphocytes # (Manual) (1.0-4.8) k/uL Myelocytes # (Manual) (0) k/uL Blast Cells # (Man) (0) k/uL Nucleated RBCs (0-0) /100 WBC Carbon Dioxide (22-30) mmol/L BUN (9-20) mg/dL Glucose (74-99) mg/dL POC Glucose (mg/dL) 164 H 193 H 152 H (75-99) mg/dL Hemoglobin A1c (4.0-6.0) % Calcium (8.4-10.2) mg/dL 09/28/17 09/28/1718 Range/Units 06:51 06:52 08:05 WBC (3.8-10.6) k/uL RBC (4.30-5.90) m/uL Hgb (13.0-17.5) gm/dL Hct (39.0-53.0) % RDW (11.5-15.5) % Plt Count (150-450) k/uL Neutrophils # (Manual) (1.3-7.7) k/uL Lymphocytes # (Manual) (1.0-4.8) k/uL Myelocytes # (Manual) (0) k/uL Blast Cells # (Man) (0) k/uL Nucleated RBCs (0-0) /100 WBC Carbon Dioxide (22-30) mmol/L BUN (9-20) mg/dL Glucose (74-99) mg/dL POC Glucose (mg/dL) 171 H 168 H 220 H (75-99) mg/dL Hemoglobin A1c (4.0-6.0) % Calcium (8.4-10.2) mg/dL 09/28/17 09/28/17 09/28/17 Range/Units 09:05 10:08 11:09 WBC (3.8-10.6) k/uL RBC (4.30-5.90) m/uL Hgb (13.0-17.5) gm/dL Hct (39.0-53.0) % RDW (11.5-15.5) % Plt Count (150-450) k/uL Neutrophils # (Manual) (1.3-7.7) k/uL Lymphocytes # (Manual) (1.0-4.8) k/uL Myelocytes # (Manual) (0) k/uL Blast Cells # (Man) (0) k/uL Nucleated RBCs (0-0) /100 WBC Carbon Dioxide (22-30) mmol/L BUN (9-20) mg/dL Glucose (74-99) mg/dL POC Glucose (mg/dL) 205 H 223 H 200 H (75-99) mg/dL Hemoglobin A1c (4.0-6.0) % Calcium (8.4-10.2) mg/dL 09/28/17 09/28/17 09/28/17 Range/Units 12:00 12:17 13:50 WBC 51.9 H* (3.8-10.6) k/uL RBC 2.42 L (4.30-5.90) m/uL Hgb 7.2 L (13.0-17.5) gm/dL Hct 22.2 L (39.0-53.0) % RDW 19.9 H (11.5-15.5) % Plt Count 20 L* (150-450) k/uL Neutrophils # (Manual) (1.3-7.7) k/uL Lymphocytes # (Manual) (1.0-4.8) k/uL Myelocytes # (Manual) (0) k/uL Blast Cells # (Man) (0) k/uL Nucleated RBCs (0-0) /100 WBC Carbon Dioxide (22-30) mmol/L BUN (9-20) mg/dL Glucose (74-99) mg/dL POC Glucose (mg/dL) 175 H 187 H (75-99) mg/dL Hemoglobin A1c (4.0-6.0) % Calcium (8.4-10.2) mg/dL 09/28/17 09/28/17 09/28/17 Range/Units 16:07 17:58 19:55 WBC (3.8-10.6) k/uL RBC (4.30-5.90) m/uL Hgb (13.0-17.5) gm/dL Hct (39.0-53.0) % RDW (11.5-15.5) % Plt Count (150-450) k/uL Neutrophils # (Manual) (1.3-7.7) k/uL Lymphocytes # (Manual) (1.0-4.8) k/uL Myelocytes # (Manual) (0) k/uL Blast Cells # (Man) (0) k/uL Nucleated RBCs (0-0) /100 WBC Carbon Dioxide (22-30) mmol/L BUN (9-20) mg/dL Glucose (74-99) mg/dL POC Glucose (mg/dL) 201 H 223 H 248 H (75-99) mg/dL Hemoglobin A1c (4.0-6.0) % Calcium (8.4-10.2) mg/dL 09/28/17 Range/Units 22:02 WBC (3.8-10.6) k/uL RBC (4.30-5.90) m/uL Hgb (13.0-17.5) gm/dL Hct (39.0-53.0) % RDW (11.5-15.5) % Plt Count (150-450) k/uL Neutrophils # (Manual) (1.3-7.7) k/uL Lymphocytes # (Manual) (1.0-4.8) k/uL Myelocytes # (Manual) (0) k/uL Blast Cells # (Man) (0) k/uL Nucleated RBCs (0-0) /100 WBC Carbon Dioxide (22-30) mmol/L BUN (9-20) mg/dL Glucose (74-99) mg/dL POC Glucose (mg/dL) 162 H (75-99) mg/dL Hemoglobin A1c (4.0-6.0) % Calcium (8.4-10.2) mg/dL Microbiology - Last 24 Hours (Table) 09/26/17 12:33 Blood Culture - Preliminary Blood No Growth after 48 hours Assessment and Plan (1) Leukemia Narrative/Plan: the patient is started on high dose Hydrea, and a significant drop in her white blood count is noted. The now in the 50,000 range. Thus he appears to have started to respond to Hydrea already. Hopefully if response continues, the patient can be stabilized. It was discussed in detail with him and the family, that the purpose of Hydrea is acute cytoreduction and symptom improvement. 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 However that would only be possible, if his current condition improved sufficiently. So far he has not had any evidence of tumor lysis. Counts remain in a safe range. Continue to monitor, and treat if needed. Continue IV hydration and allopurinol. the patient and his family are well aware, the due to the above, his prognosis continues remains extremely guarded. No code no CPR status was again confirmed with the patient and family. The office is continuing efforts at this time to try to obtain Venetoclax, as part of the combination recommended by the [facility]. Current Visit: Yes Status: Acute Code(s): C95.90 - LEUKEMIA, UNSPECIFIED NOT HAVING ACHIEVED REMISSION SNOMED Code(s): 54526326 (2) Acute respiratory failure Narrative/Plan: there has been some mild improvement, likely due to cytoreduction from the Hydrea. Some possible mechanical reasons again discussed in detail with the patient and his family, including leukostasis, as well as fluid leak/ARDS. Underlying infection and also possibility despite the possibility of fluid leak/ ARDS, the patient will need to continue IV hydration, as leukostasis is a much bigger concern. Continue supportive ICU care. Current Visit: Yes Status: Acute Code(s): J96.00 - ACUTE RESPIRATORY FAILURE , UNSP W HYPOXIA OR HYPERCAPNIA SNOMED Code(s): 30669135 Plan: greater than 20 minutes spent with the patient and family, more than 50% in counseling.
[2017-09-28 23:47] LABS: Glucose,Whole Blood 136 mg/dL (75-99)
[2017-09-29] MEDS: LORazepam 2 MG/ML INJ IV PRN ×2 (00:08→01:57)
[2017-09-29 00:30] VITALS: TEMP 98.3
[2017-09-29 01:53] LABS: Glucose,Whole Blood 201 mg/dL (75-99)
[2017-09-29] MEDS ORDERED: ARTIFICIAL TEARS-HYPROMELLOSE DROPS 15 ML BTL BOTH EYES PRN (02:36)
[2017-09-29] MEDS ORDERED: DRY MOUTH SPRAY 44.3 SPRAY/44.3 ML SPRAY MUCOUS MEM PRN (02:36)
[2017-09-29] MEDS ORDERED: MORPHINE SULFATE (100 MG/2 ML) 100 MG in SODIUM CHLORIDE 0.9% 100 ML IV SCH (02:45)
[2017-09-29] MEDS: MORPHINE SULFATE 2 MG/ML SYRINGE IV PRN ×3 (03:13→05:37)
[2017-09-29 03:30] VITALS: BP 120/63; PULSE 91; RESP 41
[2017-09-29] MEDS ORDERED: PANTOPRAZOLE 40 MG TABLET PO SCH (07:30)
[2017-09-29] MEDS: IPRATROPIUM-ALBUTEROL 3 ML NEB INHALATION SCH (09:05)
--- NOTE | 2017-09-29 15:12 | P.DS ---
Providers Date of admission: 09/26/17 15:39 Expected date of discharge: 09/29/17 Attending physician: Wilbert Mckinley Consults: 09/26/17 15:25 Consult Physician Routine Consulting Provider: Sandra Carmona Consult Reason/Comments: Leukemia, anemia Do you want consulting provider notified?: Yes 09/26/17 15:38 Consult Physician Routine Consulting Provider: Nils Gottlieb Consult Reason/Comments: Elevated troponin Do you want consulting provider notified?: Yes 09/27/17 07:24 Consult Physician Routine Consulting Provider: Sohan Alegre Consult Reason/Comments: increasing oxygen demand Do you want consulting provider notified?: Yes Primary care physician: Arely Díaz [facility] Course: summary Preliminary cause of : Acute on chronic lymphocytic leukemia with acute hypoxic respiratory failure secondary to leukemic infiltrates or possibly a bacterial pneumonia. 1. acute hypoxic respiratory failure secondary with evidence of bilateral infiltrates. Pulmonary following closely. Symptoms could be due to leukemic infiltrates, ARDS from leukemic pulmonary infiltrates, bilateral pneumonia in an immunocompromised patient, could be viral or bacterial, however I believe the presentation is mostly a presentation of ARDS with leukemic infiltrates secondary to worsening acute on chronic lymphocytic leukemia.Pulmonary and oncology are following. Continue with antibiotics cefepime and vancomycin. Continue with ICU management per pulmonary service. 2. Immunocompromised status 3. Acute on chronic lymphocytic leukemia. White count down to 57.4. Oncology started Hydrea 4. acute thrombocytopenia and anemia secondary to underlying acute on chronic lymphocytic leukemia. 5. acute hemoptysis secondary to bilateral interstitial infiltrates, again the most likely explanation is related to leukemic infiltrates bilaterally. 6. Underlying history of hypertension 7. Acute on chronic anemia due to patient's leukemia and hemoptysis. Patient required 2 units of blood. Hemoglobin 7.4 Hospital course Moe Baez is a 82-year-old male with a history of leukemia and anemia who presents with complaints of shortness of breath for the past couple days which is getting worse. He received blood transfusion as outpatient also received a course of oral antibiotic his condition continued to worsen and he decided to come to emergency room where he was admitted to medical floor. Patient was seen by hematology and 2 units of red blood cells were ordered, he was having worsening shortness of breath he received IV Lasix and was transferred to intensive care unit. Pulmonary consultation and cardiology consultation were requested. He shouldn't has a known history of leukemia and is followed by oncology as outpatient. Patient was admitted to the ICU. He started on AIRVO for his acute respiratory failure. He is seen by both pulmonary and oncology. He received blood transfusion as well as started on Hydrea. He did have some improvement in his white count. And he was placed on broad-spectrum antibiotics. There were concerned that the infiltrates were leukemic infiltrates that contributed to his acute hypoxic respiratory failure versus Bacterial pneumonia. Over the evening patient's respiratory status continued to worsen even with aggressive treatment. Comfort care was started and a consult was placed for hospice. Patient was placed on a morphine drip and oxygen therapy was withdrawn. Patient on 03/29/2018 around 6:10 AM. Please refer to chart for further details. Patient Condition at Discharge: Undetermined Plan - Discharge Summary New Discharge Prescriptions: No Action Finasteride [Proscar] 5 mg PO DAILY amLODIPine [Norvasc] 5 mg PO DAILY Cephalexin [Keflex] 500 mg PO Q8HR Bhavna-C 1 packet PO DAILY Discharge Medication List Finasteride [Proscar] 5 mg PO DAILY 07/14/17 [History] Cephalexin [Keflex] 500 mg PO Q8HR 09/26/17 [History] Bhavna-C 1 packet PO DAILY 09/26/17 [History] amLODIPine [Norvasc] 5 mg PO DAILY 09/26/17 [History] Follow up Appointment(s)/Referral(s): None,Stated [REFERRING] - 1-2 days Discharge Disposition: - Preliminary Cause of Preliminary Cause of : Acute on chronic leukemia with acute hypoxic respiratory failure
--- NOTE | 2017-09-30 13:06 | CDI ---
Last Revision, August 2017 Documentation Clarification Form Date: 09/28/2017 12:30:00 PM From: Alena WuJABIER, CCDS Admit Date: 09/26/2017 3:39:00 PM Patient Name: Moe Baez Visit Number: [id number] Discharge Date: 09/29/2017 ATTENTION: The Clinical Documentation Specialists (CDI) and [facility] Coding Staff appreciate your assistance in clarifying documentation. Please respond to the clarification below the line at the bottom and electronically sign. The CDI & [facility] Coding staff will review the response and follow-up if needed. Please note: Queries are made part of the Legal Health Record. If you have any questions, please contact the author of this message via ITS. Dr. Wilbert Mckinley: Patient presented with SOB, upper respiratory symtpoms and severe anemia, failure outpatient treatment with antibiotics and blood transfusion. Preliminary cause of : Acute on chronic lymphocytic leukemia with acute hypoxic respiratory failure secondary to leukemic infiltrates or possibly a bacterial pneumonia. History/Risk Factors: Immunocompromised with AML. Clinical Indicators: Fever, chills, sob. LAB: WBC: 69.7, Hgb 6.2, Hct 18.5, Pl Ct 31, Neut 13.20, Na 134, Gluc 294, elev trops. Lactic acid: (1.9) Blood cultures: Negative @ 24 hrs. Vitals signs on admission: T 98.1-100.8^, P 124^, R 20, BP 137/60, PO 83 ra. Treatment: Neuro cks, IV fl 100, IV Narcan, Iv Zofran, IV Maxipime, IV fl 20, IV Lasix, admit to ICU. In your professional opinion, please clarify if these findings signify one of the following conditions, whether the condition is POA, and cause, if known: Sepsis, ruled in or ruled out SIRS, without underlying infectious process Severe Sepsis Septic Shock Other, please specify Unable to determine Present on Admission: Yes or No Identify the (suspected) organism, if known: Link or clarify if there is associated (due to/with): Organ failure or Shock Please continue to document in your progress notes and discharge summary in order to capture severity of illness and risk of mortality. Include clinical findings that support your diagnosis. MTDD
== END 2017-09-29 09:34 | disposition expired | DRG 834 ==
LOC: EC 11:54 → 6SEL 15:39 → 6ICU 09-27 10:32
PROVIDERS: ADMIT Internal Medicine; ATTEND Internal Medicine
PROC: 30233N1 Transfusion of Nonautologous Red Blood Cells into Peripheral Vein, Percutaneous Approach (ICD-10-PCS; principal; 2017-09-26)
DX: C91.00 Acute lymphoblastic leukemia not having achieved remission (principal); A41.9 Sepsis, unspecified organism; J96.01 Acute respiratory failure with hypoxia; I21.A1 Myocardial infarction type 2; I11.0 Hypertensive heart disease with heart failure; J18.9 Pneumonia, unspecified organism; D69.59 Other secondary thrombocytopenia; D89.9 Disorder involving the immune mechanism, unspecified; I50.9 Heart failure, unspecified; R04.2 Hemoptysis; Z66 Do not resuscitate; Z51.5 Encounter for palliative care; D63.0 Anemia in neoplastic disease; C91.10 Chronic lymphocytic leukemia of B-cell type not having achieved remission; C92.00 Acute myeloblastic leukemia, not having achieved remission; Z79.899 Other long term (current) drug therapy
CPT/HCPCS: 36415; 71045; 71046; 71250; 80048; 80053; 82550; 82553; 83036; 83605; 83735; 83880; 84100; 84484; 85025; 85027; 85379; 85610; 85730; 86850; 86900; 86901; 86920; 87040; 87502; 93005; 93306; 94640; 94660; 94760; 96360; 96361; 99285